=== PATIENT | male | born 1950 | race Caucasian/White ===

== ENCOUNTER 2016-10-29 19:54 | Emergency (ER) | payer OTHER ==
[~2016-10-29 19:54] MED LIST: METO1TAB69 PO; ZINC PO
[2016-10-29 19:58] VITALS: Ht 172.7 cm
--- NOTE | 2016-10-29 20:58 | DIAGNOSTIC IMAGING REPORT ---
L-SPINE MIN 4 VIEWS ROUTINE CLINICAL HISTORY: Fall. COMPARISON: Lumbar spine MRI March 23, 2014. FINDINGS: Mild levoscoliosis of the lumbar spine is again noted. No acute fracture is identified. Grade I anterolisthesis of L4 and L5 is unchanged. Moderate multilevel degenerative changes are present. IMPRESSION: 1. No acute lumbar spine fracture or subluxation identified. 2. Moderate multilevel degenerative changes. Electronically signed by: Nehemiah Zavala M.D. 10/29/2016 8:56 PM Dictated Date/Time: 10/29/2016 8:55 PM
--- NOTE | 2016-10-29 20:59 | DIAGNOSTIC IMAGING REPORT ---
PELVIS 1 OR 2 VIEW ROUTINE CLINICAL HISTORY: Fall. COMPARISON STUDY: CT of the abdomen and pelvis June 03, 2014. FINDINGS: The sacroiliac joints and symphysis pubis are intact. No acute fracture is identified within the pelvis or hips. There is mild arthritis of both hips. IMPRESSION: No acute fracture within the pelvis or hips. Electronically signed by: Nehemiah Zavala M.D. 10/29/2016 8:57 PM Dictated Date/Time: 10/29/2016 8:57 PM
--- NOTE | 2016-10-29 21:01 | DIAGNOSTIC IMAGING REPORT ---
RIGHT SHOULDER MIN 2 VIEWS ROUTINE CLINICAL HISTORY: Right shoulder pain following fall. COMPARISON: None FINDINGS: This exam was compromised due to difficulty with positioning. No acute fracture is identified. There is severe AC joint arthritis and mild glenohumeral joint arthritis. IMPRESSION: 1. No acute fracture or dislocation of the right shoulder. 2. Study mildly compromised by difficultly positioning. 3. Severe right AC joint arthrosis. Electronically signed by: Nehemiah Zavala M.D. 10/29/2016 8:59 PM Dictated Date/Time: 10/29/2016 8:58 PM
--- NOTE | 2016-10-29 21:23 | DIAGNOSTIC IMAGING REPORT ---
CT OF THE HEAD WITHOUT CONTRAST CLINICAL HISTORY: Fall. COMPARISON STUDY: Head CT March 22, 2014. TECHNIQUE: Helical axial images of the head were obtained without IV contrast. Automated exposure control was utilized for the study. FINDINGS: This exam is mildly compromised by motion artifact. No acute intracranial hemorrhage, midline shift or mass effect is present. Ventricular system is stable. Basilar cisterns are patent. There are no extra axial collections. Hypodensity within the white matter suggests small vessel disease. There is a left frontal scalp contusion. No calvarial fracture is identified. Deformity of the right nasal bone is age-indeterminate but probably old. IMPRESSION: 1. No acute intracranial findings. 2. Left frontal scalp contusion. No calvarial fracture. 3. Age indeterminate, but likely old, deformity of the right nasal bone. Electronically signed by: Nehemiah Zavala M.D. 10/29/2016 9:22 PM Dictated Date/Time: 10/29/2016 9:17 PM
--- NOTE | 2016-10-29 21:29 | DIAGNOSTIC IMAGING REPORT ---
MAXILLOFACIAL CT WITHOUT CONTRAST CLINICAL HISTORY: Left-sided facial pain following fall. COMPARISON STUDY: Head CT March 22, 2014. TECHNIQUE: A maxillofacial CT was performed without IV contrast. Coronal and sagittal reformats were viewed. FINDINGS: A left frontal scalp contusion is present. There is no calvarial fracture. There is also a left facial contusion. No acute facial fracture is identified. Nasal bone deformities are likely old. There is mild mucosal thickening of the sinuses. Orbits are unremarkable. There is no retrobulbar hematoma. Globes are intact. The cervical spine CT will be reported separately. IMPRESSION: 1. Bilateral nasal bone deformities. Although age indeterminate, these are probably old and similar in appearance to head CT of October 01, 2012. 2. Left facial contusions. No definite acute facial fracture. Electronically signed by: Nehemiah Zavala M.D. 10/29/2016 9:28 PM Dictated Date/Time: 10/29/2016 9:22 PM
--- NOTE | 2016-10-29 21:32 | DIAGNOSTIC IMAGING REPORT ---
CT OF THE CERVICAL SPINE WITHOUT CONTRAST CLINICAL HISTORY: Fall. COMPARISON STUDY: No previous studies for comparison. TECHNIQUE: Helical axial images of the cervical spine were obtained without IV contrast. Sagittal and coronal reconstructions were viewed. FINDINGS: The craniocervical junction is intact. There is no acute cervical spine fracture. There is no prevertebral edema. Moderate multilevel degenerative disc disease is present as well as moderate multilevel facet arthrosis. IMPRESSION: No acute cervical spine fracture or subluxation. Electronically signed by: Nehemiah Zavala M.D. 10/29/2016 9:31 PM Dictated Date/Time: 10/29/2016 9:28 PM
[2016-10-29 22:09] VITALS: BP 128/76; PULSE 71; O2SAT 99
--- NOTE | 2016-10-29 23:11 | EMERGENCY ROOM VISIT NOTE ---
History Report prepared by Terry: Stephania Huber Under the Supervision of: Dr. Devyn Bethea M.D. First contact with patient: 20:04 Chief Complaint: FALL Stated Complaint: FELL,BUMP ON FACE History of Present Illness The patient is a 66 year old male who presents to the Emergency Room with complaints of a fall that occurred yesterday at a dusk. 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 He states he tripped over an object in an aisle in between equipment and fell over. He denies losing consciousness. He thinks he reinjured his right shoulder and sustained bruising to his face, rating his discomfort as a 3/10. The patient states he experienced neck pain last night, but it has resolved. He denies any fevers, headache or vomiting. He does not take daily blood thinners. He denies any numbness or weakness in either side of his body. He does have a history of back pain and thinks he exacerbated it during the fall. He denies any abdominal pain or hip pain. He has chronic difficulty ambulating because of his history of back pain and he states his ambulation is unchanged. He believes his last Tetanus shot was within the past 10 years. Source of History: patient Onset: last night Position: other (global) Quality: other (mechanical fall) Timing: resolved Associated Symptoms: + back pain, + neck pain (resolved), No LOC, No fevers , No headache, No numbness (numbness in either side of his body), No vomiting, No weakness (weakness in either side of body) Review of Systems See HPI for pertinent positives & negatives. A total of 10 systems reviewed and were otherwise negative. Past Medical & Surgical Medical Problems: (1) Nephrolithiasis Social History Smoking Status: Former Smoker Alcohol Use: none Drug Use: none Marital Status: single Housing Status: lives alone Occupation Status: retired Current/Historical Medications Scheduled Amlodipine (Norvasc), 2.5 MG PO QAM Metoprolol Succinate (Metoprolol Succinate ER), 100 MG PO QAM Pantoprazole (Protonix), 40 MG PO QAM Sertraline (Zoloft), 50 MG PO HS Tamsulosin Hcl (Flomax), 0.4 MG PO HS Allergies Coded Allergies: No Known Allergies (Verified , 07/07/16) Physical Exam Vital Signs Date Time Temp Pulse Resp B/P Pulse Ox O2 Delivery O2 Flow Rate FiO2 10/29/16 22:09 71 18 128/76 99 10/29/16 19:58 73 18 134/79 100 Room Air Physical Exam Constitutional: Vital signs reviewed. Eyes: Pupils are equal round reactive to light. Conjunctiva are noninjected. No hyphema, no subconjunctival hemorrhage. ENT: Left periorbital swelling with some mild tenderness, abrasions to left forehead. Pharynx is clear without erythema or exudate. Mucous membranes are moist. Neck supple without meningeal signs. Respiratory: Clear to auscultation bilaterally. Breath sounds are equal bilaterally. Cardiovascular: Regular rate and rhythm. No rubs or gallops. GI: Soft, nondistended and nontender. Bowel sounds are present. Musculoskeletal: No midline tenderness to cervical, lumbosacral or thoracic spine. Mild anterior right shoulder tenderness. No hip tenderness. Integumentary: No cyanosis. Neurologic: The patient is awake and alert. Cranial nerves II-XII are intact. Motor is 5 out of 5 all extremities. Sensation is intact to light touch all extremities. Normal speech. No pronator drift. Psychiatric: Normal affect. Medical Decision & Procedures ER Provider Diagnostic Interpretation: These CT scans were reviewed and interpreted by the radiologist and reviewed by myself. CT OF THE CERVICAL SPINE WITHOUT CONTRAST CLINICAL HISTORY: Fall. COMPARISON STUDY: No previous studies for comparison. TECHNIQUE: Helical axial images of the cervical spine were obtained without IV contrast. Sagittal and coronal reconstructions were viewed. FINDINGS: The craniocervical junction is intact. There is no acute cervical spine fracture. There is no prevertebral edema. Moderate multilevel degenerative disc disease is present as well as moderate multilevel facet arthrosis. IMPRESSION: No acute cervical spine fracture or subluxation. Electronically signed by: Nehemiah Zavala M.D. 10/29/2016 9:[address] OF THE HEAD WITHOUT CONTRAST CLINICAL HISTORY: Fall. COMPARISON STUDY: Head CT March 22, 2014. TECHNIQUE: Helical axial images of the head were obtained without IV contrast. Automated exposure control was utilized for the study. FINDINGS: This exam is mildly compromised by motion artifact. No acute intracranial hemorrhage, midline shift or mass effect is present. Ventricular system is stable. Basilar cisterns are patent. There are no extra axial collections. Hypodensity within the white matter suggests small vessel disease. There is a left frontal scalp contusion. No calvarial fracture is identified. Deformity of the right nasal bone is age-indeterminate but probably old. IMPRESSION: 1. No acute intracranial findings. 2. Left frontal scalp contusion. No calvarial fracture. 3. Age indeterminate, but likely old, deformity of the right nasal bone. Electronically signed by: Nehemiah Zavala M.D. 10/29/2016 9:[address] WITHOUT CONTRAST CLINICAL HISTORY: Left-sided facial pain following fall. COMPARISON STUDY: Head CT March 22, 2014. TECHNIQUE: A maxillofacial CT was performed without IV contrast. Coronal and sagittal reformats were viewed. FINDINGS: A left frontal scalp contusion is present. There is no calvarial fracture. There is also a left facial contusion. No acute facial fracture is identified. Nasal bone deformities are likely old. There is mild mucosal thickening of the sinuses. Orbits are unremarkable. There is no retrobulbar hematoma. Globes are intact. The cervical spine CT will be reported separately. IMPRESSION: 1. Bilateral nasal bone deformities. Although age indeterminate, these are probably old and similar in appearance to head CT of October 01, 2012. 2. Left facial contusions. No definite acute facial fracture. Electronically signed by: Nehemiah Zavala M.D. 10/29/2016 9:28 PM These X-Rays were reviewed and interpreted by myself and the radiologist. RIGHT SHOULDER MIN 2 VIEWS ROUTINE CLINICAL HISTORY: Right shoulder pain following fall. COMPARISON: None FINDINGS: This exam was compromised due to difficulty with positioning. No acute fracture is identified. There is severe AC joint arthritis and mild glenohumeral joint arthritis. IMPRESSION: 1. No acute fracture or dislocation of the right shoulder. 2. Study mildly compromised by difficultly positioning. 3. Severe right AC joint arthrosis. Electronically signed by: Nehemiah Zavala M.D. 10/29/2016 8:59 PM L-SPINE MIN 4 VIEWS ROUTINE CLINICAL HISTORY: Fall. COMPARISON: Lumbar spine MRI March 23, 2014. FINDINGS: Mild levoscoliosis of the lumbar spine is again noted. No acute fracture is identified. Grade I anterolisthesis of L4 and L5 is unchanged. Moderate multilevel degenerative changes are present. IMPRESSION: 1. No acute lumbar spine fracture or subluxation identified. 2. Moderate multilevel degenerative changes. Electronically signed by: Nehemiah Zavala M.D. 10/29/2016 8:56 PM PELVIS 1 OR 2 VIEW ROUTINE CLINICAL HISTORY: Fall. COMPARISON STUDY: CT of the abdomen and pelvis June 03, 2014. FINDINGS: The sacroiliac joints and symphysis pubis are intact. No acute fracture is identified within the pelvis or hips. There is mild arthritis of both hips. IMPRESSION: No acute fracture within the pelvis or hips. Electronically signed by: Nehemiah Zavala M.D. 10/29/2016 8:57 PM ED Course 2005: The patient was evaluated in room C10. A complete history and physical exam was performed. 2139: I reevaluated the patient. I discussed test results with the patient. His family member states he has broken his nose in the past. I discussed his discharge instructions and he verbalized complete understanding and agreement. Medical Decision This is a 66-year-old male who presents after mechanical fall with injuries. Differential diagnosis includes contusion, concussion, intracranial hemorrhage, skull fracture, facial fracture, strain. I did perform a limited focused review of portions of the patient's old chart on the electronic medical record. The patient has had no recent pertinent visits to this hospital. I did evaluate the patient as noted above. He is presenting with injuries after a mechanical fall yesterday. He is neurologically intact. I did order and personally review the patient's x-ray as described above. He has no evidence of fracture dislocation. He does have significant arthritis to his right shoulder as well as degenerative changes to his lumbar spine. I did order a CT of the head, facial bones and cervical spine. I did review the images myself as well as the radiology report as described above. There is no evidence of acute intracranial hemorrhage. He has old nasal fractures but no acute fractures to his face. Cervical spine is unremarkable. 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 He does state that his nasal fractures are old. He was discharged with head injury precautions and advised to follow with his doctor. Impression Primary Impression: Acute head injury Additional Impressions: Right shoulder injury Low back pain Fall Scribe Attestation The scribe's documentation has been prepared under my direct and personally reviewed by me in its entirety. I confirm that the note above accurately reflects all work, treatment, procedures, and medical decision making performed by me. Departure Information Dispostion Home / Self-Care Referrals Pro,Xavier Vera M.D. (PCP) Patient Instructions ED Head Injury Closed, My [facility] Additional Instructions You have been examined and treated today on an emergency basis only. This is not a substitute for, or an effort to provide, complete comprehensive medical care. It is impossible to recognize and treat all injuries or illnesses in a single emergency department visit. It is therefore important that you follow up closely with your physician. Call as soon as possible for an appointment. Return for worsening symptoms or if you develop fever, vomiting, chest pain, shortness breath, abdominal pain or any other concerning symptoms. Problem Qualifiers Primary Impression: Acute head injury Encounter type: initial encounter Qualified Codes: S09.90XA - Unspecified injury of head, initial encounter Additional Impressions: Right shoulder injury Encounter type: initial encounter Qualified Codes: S49.91XA - Unspecified injury of right shoulder and upper arm, initial encounter Fall Encounter type: initial encounter Qualified Codes: W19.XXXA - Unspecified fall, initial encounter
[2017-01-15] MEDS ORDERED: AMLO-110 PO (13:11)
[2017-01-15] MEDS ORDERED: SERT50TA PO (13:11)
[2017-01-15] MEDS ORDERED: PANT40TA PO (13:11)
[2017-01-15] MEDS ORDERED: TAMS0.4C38 PO (13:11)
== END 2016-10-29 22:10 | disposition home or self-care (01) ==
LOC: C.EDB 19:54 → C.EDC 22:10
DX: S09.90XA Unspecified injury of head, initial encounter (principal); S49.91XA Unspecified injury of right shoulder and upper arm, initial encounter; M54.5 Low back pain; Z79.899 Other long term (current) drug therapy; Z87.891 Personal history of nicotine dependence; W18.09XA Striking against other object with subsequent fall, initial encounter; Y92.018 Other place in single-family (private) house as the place of occurrence of the external cause; Y99.8 Other external cause status

== ENCOUNTER 2017-01-15 18:25 | Emergency (ER) | payer OTHER ==
[~2017-01-15 18:25] MED LIST changes: +AMLO-110 PO; -METO1TAB69 PO; +PANT40TA PO; +SERT50TA PO; +TAMS0.4C38 PO; -ZINC PO
[2017-01-15 18:30] VITALS: TEMP 36.5; Ht 170.2 cm
[2017-01-15] MEDS ORDERED: AMPICILLIN/SULBACTAM SOD INJ 3,000 MG in SODIUM CHLORIDE 0.9% 100ML 100 ML IV ONE (18:45)
--- NOTE | 2017-01-15 19:02 | EMERGENCY ROOM VISIT NOTE ---
History Report prepared by Terry: Brianna Ball Under the Supervision of: Dr. Luis Manuel Schmidt M.D. First contact with patient: 18:35 Chief Complaint: FOOT PAIN Stated Complaint: VERY SORE L FOOT FROM FALL, POSS INFECTION CLOT History of Present Illness The patient is a 66 year old male who presents to the Emergency Room with complaints of worsening left lower leg and foot pain that started a few weeks ago, per the patient's friends. The patient's friends state that the patient has been limping around for the past few weeks and they finally convinced him to get his foot evaluated today. The patient was evaluated at [facility] then sent to the ED for further evaluation. The patient states that he jumped off a pile of debris last June that was 3-4 feet high because he was going to fall off of it. He states that the debris consisted of nails and glass and when he jumped off he landed on his left foot. The patient states that he had some pain in his left foot after that incident, but it resolved on its own after about one week. He did not get evaluated after that incident. He states that he has fallen more recently since June and that those falls may have caused his foot to hurt again. The patient is also experiencing left foot erythema and warmth. He states that he experienced chills once over the last two weeks. The patient denies any history of diabetes. He adds that he has a history of cellulitis, which was treated with IV antibiotics in the past. Source of History: patient, friend Onset: a few weeks ago Position: foot (left) Quality: other (foot pain) Timing: worsening Associated Symptoms: + chills Note: left lower leg erythema and warmth Review of Systems See HPI for pertinent positives & negatives. A total of 10 systems reviewed and were otherwise negative. Past Medical & Surgical Medical Problems: (1) Nephrolithiasis Family History Diabetes mellitus Hypertension Hypertension Kidney disease Kidney stones Lung disease Social History Smoking Status: Never Smoker Alcohol Use: none Drug Use: none Marital Status: single Housing Status: lives alone Occupation Status: retired Current/Historical Medications Scheduled Amlodipine (Norvasc), 2.5 MG PO QAM Amoxicillin & Pot Clavulanate (Augmentin 875-125 mg), 875 MG PO BID Metoprolol Succinate (Metoprolol Succinate ER), 100 MG PO QAM Pantoprazole (Protonix), 40 MG PO QAM Sertraline (Zoloft), 50 MG PO HS Tamsulosin Hcl (Flomax), 0.4 MG PO HS Allergies Coded Allergies: No Known Allergies (Verified , 01/15/17) Physical Exam Vital Signs Date Time Temp Pulse Resp B/P Pulse Ox O2 Delivery O2 Flow Rate FiO2 01/15/17 21:45 58 18 133/80 99 Room Air 01/15/17 19:59 59 18 136/83 100 Room Air 01/15/17 18:30 36.5 70 18 127/80 100 Room Air Physical Exam GENERAL: Patient is in no acute distress. HEENT: No acute trauma, normocephalic atraumatic, mucous membranes moist, no nasal congestion, no scleral icterus. NECK: No stridor, no adenopathy, no meningismus, trachea is midline. LUNGS: Clear to auscultation bilaterally, no wheeze, no rhonchi, breath sounds equal. HEART: Without murmurs gallops or rubs, regular rate and rhythm. ABDOMEN: Soft, nontender, bowel sounds positive, no hernias, no peritonitis. EXTREMITIES: Left more so than right pedal edema, left leg has an open healing wound about 3 mm in size to the anterior aspect of the distal leg with surrounding erythema and warmth, no drainage, warm feet and toes bilaterally. NEUROLOGIC: Oriented x 3, no acute motor or sensory deficits, no focal weakness. SKIN: No rash, no jaundice, no diaphoresis. Medical Decision & Procedures ER Provider Diagnostic Interpretation: X ray results and stated below per my interpretation and radiologist interpretation. Other radiology results and stated below per my review and radiologist interpretation: LEFT TIBIA/FIBULA 2 VIEWS ROUTINE, LEFT FOOT MIN 3 VIEWS ROUTINE FINDINGS: No fracture or dislocation. Diffuse soft tissue swelling within the left lower leg and dorsum of the foot. Moderate osteoarthritis at the first MTP joint and interphalangeal joint of the first toe. The Lisfranc joint is intact. No radiopaque foreign bodies. IMPRESSION: Soft tissue swelling. No fracture or dislocation within the left lower leg or left foot. Electronically signed by: Jose Lamar M.D. 01/15/2017 7:48 PM Dictated Date/Time: 01/15/2017 7:44 PM LEFT LOWER EXTREMITY VENOUS DOPPLER HISTORY: Left leg swelling, pain COMPARISON STUDY: None. FINDINGS: There is normal compressibility, flow, and augmentation within the left lower extremity deep venous system. Diffuse subcutaneous edema IMPRESSION: No DVT within the left lower extremity. Electronically signed by: Jose Lamar M.D. 01/15/2017 9:11 PM Dictated Date/Time: 01/15/2017 9:11 PM Laboratory Results 01/15/17 19:00 Red Blood Count 3.77, Mean Corpuscular Volume 88.1, Mean Corpuscular Hemoglobin 29.4, Mean Corpuscular Hemoglobin Concent 33.4, Mean Platelet Volume 8.7, Neutrophils (%) (Auto) 59.6, Lymphocytes (%) (Auto) 28.2, Monocytes (%) (Auto) 8.6, Eosinophils (%) (Auto) 2.8, Basophils (%) (Auto) 0.8, Neutrophils # (Auto) 2.16, Lymphocytes # (Auto) 1.02, Monocytes # (Auto) 0.31, Eosinophils # (Auto) 0.10, Basophils # (Auto) 0.03 01/15/17 19:00 Test 01/15/17 19:00 White Blood Count 3.62 K/uL (4.8-10.8) Red Blood Count 3.77 M/uL (4.7-6.1) Hemoglobin 11.1 g/dL (14.0-18.0) Hematocrit 33.2 % (42-52) Mean Corpuscular Volume 88.1 fL (80-100) Mean Corpuscular Hemoglobin 29.4 pg (25-34) Mean Corpuscular Hemoglobin Concent 33.4 g/dl (32-36) Platelet Count 162 K/uL (130-400) Mean Platelet Volume 8.7 fL (7.4-10.4) Neutrophils (%) (Auto) 59.6 % Lymphocytes (%) (Auto) 28.2 % Monocytes (%) (Auto) 8.6 % Eosinophils (%) (Auto) 2.8 % Basophils (%) (Auto) 0.8 % Neutrophils # (Auto) 2.16 K/uL (1.4-6.5) Lymphocytes # (Auto) 1.02 K/uL (1.2-3.4) Monocytes # (Auto) 0.31 K/uL (0.11-0.59) Eosinophils # (Auto) 0.10 K/uL (0-0.5) Basophils # (Auto) 0.03 K/uL (0-0.2) RDW Standard Deviation 47.6 fL (36.4-46.3) RDW Coefficient of Variation 14.7 % (11.5-14.5) Immature Granulocyte % (Auto) 0.0 % Immature Granulocyte # (Auto) 0.00 K/uL (0.00-0.02) Prothrombin Time 11.4 SECONDS (9.0-12.0) Prothromb Time International Ratio 1.1 (0.9-1.1) Activated Partial Thromboplast Time 27.1 SECONDS (21.0-31.0) Partial Thromboplastin Ratio 1.0 Anion Gap 8.0 mmol/L (3-11) Estimated GFR () 65.0 Estimated GFR (Non- 56.1 BUN/Creatinine Ratio 19.0 (10-20) Calcium Level 9.1 mg/dl (8.5-10.1) Laboratory results reviewed by me. Medications Administered Medications (Trade) Dose Ordered Sig/Vicki Route Start Time Stop Time Status Last Admin Dose Admin Ampicillin Sodium/ Sulbactam Sodium/ Sodium Chloride (Unasyn Inj/Nss 100ml) 108 ml @ 200 mls/hr ONE ONCE IV 01/15/17 18:45 01/15/17 19:17 DC 01/15/17 19:19 200 MLS/HR ED Course 183: The patient was evaluated in room A11. A complete history and physical exam was performed. 1844: Ordered Ampicillin Sodium/Sulbactam Sodium 3000 mg/Sodium Chloride 108 ml @ 200 mls/hr IV 2124: Reevaluated the patient. Discussed results and discharge instructions: he verbalized understanding and agreement. The patient is ready for discharge. Medical Decision Differential diagnoses considered include cellulitis, DVT, leg ankle or foot fracture, anemia, electrolyte imbalance, trauma. There is no leukocytosis or concerning anemia. No significant electrolyte abnormality or kidney failure. There is no coagulopathy. Left tib-fib and left foot films show no fractures or bony dislocations. Left leg ultrasound shows no evidence for DVT. On exam, the patient did appear to have a left lower extremity cellulitis. The patient was given IV Unasyn. He was reassured by his testing. He is being discharged on Augmentin twice a day for 10 days. Leg elevation was advised. He will see his doctor this week. If worsening, he will return for reassessment. Impression Primary Impression: Left leg cellulitis Additional Impression: Left leg swelling Scribe Attestation The scribe's documentation has been prepared under my direction and personally reviewed by me in its entirety. I confirm that the note above accurately reflects all work, treatment, procedures, and medical decision making performed by me. Departure Information Dispostion Home / Self-Care Prescriptions Amoxicillin & Pot Clavulanate (Augmentin 875-125 mg) 1 Tab Tab 875 MG PO BID for 10 Days, #20 TAB Prov: Luis Manuel Schmidt M.D. 01/15/17 Referrals Pro,Xavier Vera M.D. (PCP) Forms HOME CARE DOCUMENTATION FORM, IMPORTANT VISIT INFORMATION Patient Instructions My [facility] Additional Instructions augmentin 2x per day for 10 days see your doctor this week for a recheck keep the leg elevated return if worsening as we discussed no clot today by ultrasound may use tylenol for pain Problem Qualifiers
[2017-01-15 19:13] LABS: BASO % 0.8 %; BASO ABS # 0.03 K/uL (0-0.2); COMPLETE YES; EOS % 2.8 %; HEMATOCRIT 33.2 % (42-52); LYMPH % 28.2 %; LYMPH ABS # 1.02 K/uL (1.2-3.4); MEAN CELL VOLUME 88.1 fL (80-100); MEAN CORPUSCULAR HEMOGLOBIN 29.4 pg (25-34); MEAN CORPUSCULAR HGB CONC 33.4 g/dl (32-36); MEAN PLATELET VOLUME 8.7 fL (7.4-10.4); MONO % 8.6 %; NEUT % 59.6 %; PLATELET COUNT 162 K/uL (130-400); RED BLOOD COUNT 3.77 M/uL (4.7-6.1); WHITE BLOOD COUNT 3.62 K/uL (4.8-10.8)
[2017-01-15 19:23] LABS: INR 1.1 (0.9-1.1); PROTHROMBIN TIME (PATIENT) 11.4 SECONDS (9.0-12.0)
[2017-01-15 19:38] LABS: BLOOD UREA NITROGEN 25 mg/dl (7-18); CALCIUM 9.1 mg/dl (8.5-10.1); CARBON DIOXIDE 30 mmol/L (21-32); CHLORIDE 105 mmol/L (98-107); GLUCOSE 85 mg/dl (70-99); POTASSIUM 3.9 mmol/L (3.5-5.1); SODIUM 143 mmol/L (136-145)
--- NOTE | 2017-01-15 19:49 | DIAGNOSTIC IMAGING REPORT ---
LEFT TIBIA/FIBULA 2 VIEWS ROUTINE, LEFT FOOT MIN 3 VIEWS ROUTINE CLINICAL HISTORY: left leg, foot pain. Fall. COMPARISON STUDY: None. FINDINGS: No fracture or dislocation. Diffuse soft tissue swelling within the left lower leg and dorsum of the foot. Moderate osteoarthritis at the first MTP joint and interphalangeal joint of the first toe. The Lisfranc joint is intact. No radiopaque foreign bodies. IMPRESSION: Soft tissue swelling. No fracture or dislocation within the left lower leg or left foot. Electronically signed by: Jose Lamar M.D. 01/15/2017 7:48 PM Dictated Date/Time: 01/15/2017 7:44 PM
--- NOTE | 2017-01-15 21:12 | DIAGNOSTIC IMAGING REPORT ---
LEFT LOWER EXTREMITY VENOUS DOPPLER HISTORY: Left leg swelling, pain COMPARISON STUDY: None. FINDINGS: There is normal compressibility, flow, and augmentation within the left lower extremity deep venous system. Diffuse subcutaneous edema IMPRESSION: No DVT within the left lower extremity. Electronically signed by: Jose Lamar M.D. 01/15/2017 9:11 PM Dictated Date/Time: 01/15/2017 9:11 PM
[2017-01-15] MEDS ORDERED: AMOX875T PO (21:31)
[2017-01-15 21:45] VITALS: BP 133/80; PULSE 58; O2SAT 99
[2017-01-15] MEDS ORDERED: TPRSR/100 PO (22:11)
[2017-07-25] MEDS ORDERED: IBUP-103 PO (13:18)
== END 2017-01-15 21:46 | disposition home or self-care (01) ==
LOC: C.EDB 18:27 → C.EDA 21:46
DX: L03.116 Cellulitis of left lower limb (principal); R22.42 Localized swelling, mass and lump, left lower limb; Z87.442 Personal history of urinary calculi; Z79.899 Other long term (current) drug therapy; Z83.3 Family history of diabetes mellitus; Z82.49 Family history of ischemic heart disease and other diseases of the circulatory system; Z84.1 Family history of disorders of kidney and ureter

== ENCOUNTER → 2017-05-13 | Outpatient (CLI) | payer OTHER ==
[~2017-05-13] MED LIST changes: +TPRSR/100 PO
--- NOTE | 2017-05-13 11:40 | DIAGNOSTIC IMAGING REPORT ---
RIGHT SHOULDER 3 VIEWS HISTORY: RIGHT SHOULDER PAIN Right COMPARISON: Right shoulder 10/29/2016. FINDINGS: There is no fracture or dislocation. Soft tissues are unremarkable. The right clavicle is intact. Severe AC joint arthrosis, unchanged. Mild osteoarthritis at the glenohumeral joint is also stable. Stable 5 mm round density at the superior aspect of the glenohumeral joint. This could represent a small intra-articular loose body. IMPRESSION: 1. No fracture or dislocation within the right shoulder. 2. No significant change in the severe AC joint arthrosis. 3. Possible 5 mm intra-articular loose body. Electronically signed by: Jose Lamar M.D. 05/13/2017 11:39 AM Dictated Date/Time: 05/13/2017 11:37 AM
[2017-05-13 13:19] LABS: HEMATOCRIT 34.2 % (42-52); MEAN CELL VOLUME 89.1 fL (80-100); MEAN CORPUSCULAR HEMOGLOBIN 30.2 pg (25-34); MEAN CORPUSCULAR HGB CONC 33.9 g/dl (32-36); MEAN PLATELET VOLUME 9.4 fL (7.4-10.4); PLATELET COUNT 167 K/uL (130-400); RED BLOOD COUNT 3.84 M/uL (4.7-6.1); WHITE BLOOD COUNT 4.64 K/uL (4.8-10.8)
[2017-05-13 13:27] LABS: ALT/SGPT 43 U/L (12-78); AST/SGOT 36 U/L (15-37); BLOOD UREA NITROGEN 13 mg/dl (7-18); BUN/CREATININE RATIO 13.1 (10-20); CARBON DIOXIDE 32 mmol/L (21-32); CHLORIDE 103 mmol/L (98-107); GLUCOSE 117 mg/dl (70-99); POTASSIUM 4.6 mmol/L (3.5-5.1); SODIUM 138 mmol/L (136-145)
[2017-05-13 13:37] LABS: ALB/GLOB RATIO 0.8 (0.9-2)
[2017-05-13 13:38] LABS: ALKALINE PHOSPHATASE 122 U/L (45-117); CHOLESTEROL 95 mg/dl (0-200); CHOLESTEROL/HDL RATIO 3.1; HDL CHOLESTEROL 31 mg/dl; LDL CHOLESTEROL CALCULATED 44 mg/dl; PROSTATE SPECIFIC ANTIGEN 0.483 ng/ml (0.000-4.000); TRIGLYCERIDES 101 mg/dl (0-150); VERY LOW DENSITY LIPOPROT CALC 20 mg/dl
--- NOTE | 2017-05-24 11:45 | CODING QUERY MEDICAL NECESSITY ---
CQSUPPORTING DIAGNOSIS NEEDED A supporting diagnosis is required for the test/procedure performed on this patient in order for us to be reimbursed by the patient's insurance. Please provide a supporting diagnosis for the following test/procedure listed below next to the test name along with your signature. *If there is no additional diagnosis for this patient that would support the following test/procedure please document that below next to the test/procedure. Test(s)/Procedure(s) that require a supporting diagnosis: DOS 05/13/17 PROSTATE SPECIFIC TEST YOU RETURNED QUERY WITH SIGNATURE BUT NO DIAGNOSIS PLEASE ADD DIAGNOSIS AND SIGNATURE THANK YOU Provider Signature: Date: Thank you Suyapa Elliott [facility] Information Management Once completed, please kindly fax back to [phone] For questions please call [phone]
== END | disposition home or self-care (01) ==
LOC: C.RAD1850 10:55
PROVIDERS: ATTEND Internal Medicine
DX: K74.0 Hepatic fibrosis (principal); R63.4 Abnormal weight loss; I10 Essential (primary) hypertension; M25.511 Pain in right shoulder

== ENCOUNTER → 2017-05-18 | Outpatient (CLI) | payer OTHER ==
--- NOTE | 2017-05-18 12:07 | DIAGNOSTIC IMAGING REPORT ---
ABDOMEN ULTRASOUND FOR HERNIA CLINICAL HISTORY: LEFT INGUINAL SWELLING COMPARISON STUDY: Abdomen and pelvis CT 06/03/2014. FINDINGS: There is a left inguinal hernia which contains a segment of bowel, fluid, and fat. This is reducible. No masses identified within the left inguinal region. No lymphadenopathy. IMPRESSION: A bowel and fluid containing reducible left inguinal hernia. Electronically signed by: Jose Lamar M.D. 05/18/2017 12:07 PM Dictated Date/Time: 05/18/2017 12:04 PM
--- NOTE | 2017-05-18 12:42 | DIAGNOSTIC IMAGING REPORT ---
ABDOMEN COMPLETE (US) CLINICAL HISTORY: Hepatic fibrosis. COMPARISON STUDY: CT of the abdomen and pelvis June 03, 2014 and right upper quadrant ultrasound March 21, 2014. FINDINGS: Coarsening of hepatic echotexture and nodularity of the liver surface is indicative of cirrhosis. No hepatic lesions are identified by sonography. No gallstones are identified. Mild gallbladder wall thickening is a nonspecific finding. The pancreatic body is normal. The head and tail are partially obscured. There is no biliary ductal dilatation. The spleen is mildly enlarged. This is likely increased since exam of June 03, 2014. The right kidney measures 9.4 cm and left measures 10.7 cm. There is no hydronephrosis. There is a 1 cm right renal cyst. Caliber of the abdominal aorta is normal. No ascites is identified. IMPRESSION: 1. Cirrhosis. No hepatic lesions identified by sonography. 2. Mild splenomegaly which has developed since exam June 03, 2014 and likely reflects sequela of portal hypertension. 3. Mild gallbladder wall thickening, a nonspecific finding. 4. No hydronephrosis. Electronically signed by: Nehemiah Zavala M.D. 05/18/2017 12:40 PM Dictated Date/Time: 05/18/2017 12:36 PM
== END | disposition home or self-care (01) ==
LOC: C.ULTRBC 09:33
PROVIDERS: ATTEND Internal Medicine
DX: R19.09 Other intra-abdominal and pelvic swelling, mass and lump (principal); K74.0 Hepatic fibrosis; K40.90 Unilateral inguinal hernia, without obstruction or gangrene, not specified as recurrent; K74.60 Unspecified cirrhosis of liver

== ENCOUNTER → 2017-06-29 | Outpatient (CLI) | payer OTHER ==
[2017-06-29 13:12] LABS: BASO % 0.5 %; BASO ABS # 0.03 K/uL (0-0.2); COMPLETE YES; EOS % 1.9 %; HEMATOCRIT 33.7 % (42-52); IG% 0.2 %; LYMPH ABS # 0.98 K/uL (1.2-3.4); MEAN CELL VOLUME 87.5 fL (80-100); MEAN CORPUSCULAR HEMOGLOBIN 29.4 pg (25-34); MEAN CORPUSCULAR HGB CONC 33.5 g/dl (32-36); MEAN PLATELET VOLUME 9.9 fL (7.4-10.4); MONO % 9.9 %; NEUT % 70.5 %; PLATELET COUNT 190 K/uL (130-400); RED BLOOD COUNT 3.85 M/uL (4.7-6.1); WHITE BLOOD COUNT 5.78 K/uL (4.8-10.8)
[2017-06-29 13:49] LABS: ALT/SGPT 29 U/L (12-78); AST/SGOT 30 U/L (15-37); BLOOD UREA NITROGEN 40 mg/dl (7-18); BUN/CREATININE RATIO 48.2 (10-20); CALCIUM 8.9 mg/dl (8.5-10.1); CARBON DIOXIDE 27 mmol/L (21-32); CHLORIDE 101 mmol/L (98-107); CREATININE 0.83 mg/dl (0.60-1.40); GLUCOSE 101 mg/dl (70-99); POTASSIUM 4.4 mmol/L (3.5-5.1); SODIUM 135 mmol/L (136-145)
[2017-06-29 13:58] LABS: ALB/GLOB RATIO 0.8 (0.9-2); ALKALINE PHOSPHATASE 103 U/L (45-117); TOTAL IRON BINDING CAPACITY 346 mcg/dl (250-450)
== END | disposition home or self-care (01) ==
LOC: C.LABBC 11:33
PROVIDERS: ATTEND Physician Assistant
DX: R63.4 Abnormal weight loss (principal)

== ENCOUNTER → 2017-07-25 | Outpatient (CLI) | payer OTHER ==
[~2017-07-25] MED LIST changes: +DOXY100C76 PO; +IBUP-103 PO
--- NOTE | 2017-07-25 15:37 | DIAGNOSTIC IMAGING REPORT ---
THORACIC SPINE 3 VIEWS ROUTINE HISTORY: 67 years-old Male MODERATE BACK PAIN,LT RT SHOULDER PAIN acute back pain status post fall COMPARISON: Lumbar spine radiographs of same day TECHNIQUE: 3 views of the thoracic spine FINDINGS: 12 thoracic type vertebral segments are present. The right 12th rib is hypoplastic. Mild multilevel endplate spurring and intervertebral disc space narrowing is noted without acute fracture or subluxation. No compression deformity identified. Dense calcifications of the mitral annulus are noted along with cardiomegaly. There is atherosclerosis of the aorta. IMPRESSION: No acute fracture or subluxation. The above report was generated using voice recognition software. It may contain grammatical, syntax or spelling errors. Electronically signed by: Davis Dodd M.D. 07/25/2017 3:36 PM Dictated Date/Time: 07/25/2017 3:33 PM
--- NOTE | 2017-07-25 15:39 | DIAGNOSTIC IMAGING REPORT ---
L SHOULDER MIN 2 VIEWS ROUTINE HISTORY: 67 years-old Male MODERATE BACK PAIN,LT RT SHOULDER PAIN acute left shoulder pain status post fall COMPARISON: Chest radiograph 03/21/2014 TECHNIQUE: 3 views of the left shoulder FINDINGS: Mild glenohumeral and chronic reticular osteoarthritis without acute fracture or dislocation. Mild spurring of the inferior aspect acromium. Imaged lung vann appear clear. IMPRESSION: Mild degenerative changes without acute fracture or dislocation. The above report was generated using voice recognition software. It may contain grammatical, syntax or spelling errors. Electronically signed by: Davis Dodd M.D. 07/25/2017 3:37 PM Dictated Date/Time: 07/25/2017 3:36 PM
--- NOTE | 2017-07-25 15:45 | DIAGNOSTIC IMAGING REPORT ---
RIGHT SHOULDER 4 VIEWS CLINICAL HISTORY: Fall. Chronic right shoulder pain. FINDINGS: 4 views the right shoulder are compared to study dated 05/13/2017. The skeletal structures are osteopenic. There is no radiographic evidence of fracture or dislocation. Productive degenerative change is seen at the acromioclavicular joint. The glenohumeral articulation appears preserved. Mild arthritic change is noted in the greater tuberosity of the humeral head. The overlying soft tissues are within normal limits. The partially imaged right upper lobe lung parenchyma appears clear. IMPRESSION: Osteopenia and mild arthritic change as above. No acute bony abnormality is seen. Electronically signed by: Luis Manuel Case M.D. 07/25/2017 3:43 PM Dictated Date/Time: 07/25/2017 3:42 PM
--- NOTE | 2017-07-25 16:03 | DIAGNOSTIC IMAGING REPORT ---
LUMBAR SPINE 5 VIEWS CLINICAL HISTORY: Chronic low back pain. FINDINGS: Five views of the lumbar spine are compared to study dated to 10/29/16. The skeletal structures are osteopenic. Vertebral body height is maintained throughout the lumbar spine. There is minimal anterolisthesis at L4-L5. Alignment is otherwise preserved. There is no radiographic evidence of acute fracture or malalignment. Moderate lumbar levocurvature is centered at L3-L4. The transverse and spinous processes appear intact. There is no evidence of spondylolysis. Small anterior osteophytes are seen throughout. Advanced facet arthropathy is seen in the lower lumbar region. Mild multilevel degenerative disc space narrowing is seen at all levels. The visualized sacrum and bony pelvis appear intact. Sclerotic change is noted in the sacroiliac joints. There is atherosclerotic calcification of the abdominal aorta. There is a nonobstructed abdominal bowel gas pattern noting moderate constipation. The heart appears enlarged and the mitral annulus is densely calcified. IMPRESSION: 1. No acute bony abnormality is seen involving the lumbosacral spine. 2. Osteopenia with lumbosacral spondylosis and scoliosis as above. This has not significantly changed from 10/29/2016. Dictated: 07/25/2017 3:33 PM Transcribed: 07/25/2017 4:02 PM Elicia Electronically signed by: Luis Manuel Case M.D. 07/25/2017 4:31 PM Dictated Date/Time: 07/25/2017 3:33 PM
== END | disposition home or self-care (01) ==
LOC: C.RAD 14:33
PROVIDERS: ATTEND Internal Medicine
DX: M85.812 Other specified disorders of bone density and structure, left shoulder (principal); M85.811 Other specified disorders of bone density and structure, right shoulder; M85.89 Other specified disorders of bone density and structure, multiple sites; M47.817 Spondylosis without myelopathy or radiculopathy, lumbosacral region

== ENCOUNTER 2017-07-27 17:16 | Emergency (ER) | payer OTHER ==
[~2017-07-27] VITALS: Ht 167.6 cm; Wt 62.6 kg
[~2017-07-27 17:16] MED LIST changes: -DOXY100C76 PO
[2017-07-27 17:20] VITALS: TEMP 36.5; Ht 167.6 cm; Wt 62.6 kg
--- NOTE | 2017-07-27 17:42 | EMERGENCY ROOM VISIT NOTE ---
History Report prepared by Terry: Carlos Crespo Under the Supervision of: Dr. Paul Jhaveri M.D. First contact with patient: 17:29 Chief Complaint: REFERRED BY DOCTOR Stated Complaint: REFERRED BY DR. LEON History of Present Illness The patient is a 67 year old male who presents to the Emergency Room from Dr. Leon's office with complaints of increasing falls over the past month. Per the patient's family, the patient is not sure why the patient was sent here from Dr. Leon's office. The patient was being seen at Dr. Leon's office prior to arrival for pre-op testing for a hernia. The patient states that he has had low back and neck pain for a few years now due to disc issues. He adds that he has had a lot of falls recently. Per the patient's family, the patient has been tripping forward on a lot of the falls, and one fall "did a lot of damage". The patient has been complaining a lot recently of shoulder and neck pain. He notes that he has hit his head on some of the falls. He adds that he has lost around 35 pounds within the past 6 months, and the patient's family agrees. He denies any headaches or abdominal pain currently. He lives by himself at home. The patient is an ex-smoker, and currently uses E-cigarettes. Source of History: patient, family Onset: Over past month Position: other (global - falls) Symptom Intensity: one fall "did a lot of damage" Timing: other (increasing) Associated Symptoms: + neck pain, + back pain, No headache, No abdominal pain Note: Associated symptoms: Complaining of shoulder pain recently. Lost around 35 pounds in past 6 months. Review of Systems See HPI for pertinent positives & negatives. A total of 10 systems reviewed and were otherwise negative. Past Medical & Surgical Medical Problems: (1) Nephrolithiasis Family History Diabetes mellitus Hypertension Hypertension Kidney disease Kidney stones Lung disease Social History Smoking Status: Former Smoker (now using E-cigarettes) Alcohol Use: none Drug Use: none Marital Status: single Housing Status: lives alone Occupation Status: retired Current/Historical Medications Scheduled Amlodipine (Norvasc), 2.5 MG PO QAM Doxycycline Monohydrate (Monodox), 100 MG PO BID Ibuprofen Tab (Advil), 200 MG PO PRN Metoprolol Succinate (Metoprolol Succinate ER), 100 MG PO QAM Pantoprazole (Protonix), 40 MG PO QAM Sertraline (Zoloft), 50 MG PO HS Tamsulosin Hcl (Flomax), 0.4 MG PO HS Allergies Coded Allergies: Bacitracin (Verified Allergy, Unknown, PT DENIES-ON MEDICAL RECORD, ) Neomycin (Verified Allergy, Unknown, PT DENIES-ON MEDICAL RECORD, 07/27/17) Polymyxin B (Verified Allergy, Unknown, PT DENIES-ON MEDICAL RECORD, ) Physical Exam Vital Signs Date Time Temp Pulse Resp B/P (MAP) Pulse Ox O2 Delivery O2 Flow Rate FiO2 07/27/17 21:56 55 18 97/56 99 07/27/17 19:09 51 18 101/53 100 Room Air 07/27/17 18:02 62 07/27/17 17:50 100 Room Air 07/27/17 17:20 36.5 73 20 102/64 99 Room Air Physical Exam GENERAL: Patient is a 67 year old male who is cachectic in appearance. HEAD: Normocephalic atraumatic EYES: Ocular movements intact pupils equal and react to light OROPHARYNX mucous membranes are moist no exudates present no erythema or edema present NECK: Supple no nuchal rigidity CHEST: Good equal expansion LUNGS: Clear and equal to auscultation CARDIAC: Normal S1 and S2 ABDOMEN: Soft nontender no guarding BACK: No CVA tenderness EXTREMITIES: No pain upon palpation normal muscle strength in all groups no clubbing cyanosis or edema NEURO: Patient is following commands and answering questions appropriately. Alert and oriented x3 Cranial Nerves 2-12 grossly intact Medical Decision & Procedures ER Provider Diagnostic Interpretation: CT results as stated below per my review and radiologist interpretation: CT SCAN OF THE THORACIC SPINE WITHOUT IV CONTRAST CLINICAL HISTORY: Back pain. Fall. COMPARISON STUDY: Radiographs of the thoracic spine dated 07/25/2017. MRI of the thoracic spine dated 03/23/2014. CT scan of the chest performed concurrently on 07/27/2017. TECHNIQUE: CT scan of the thoracic spine is performed from the lower cervical spine to the upper lumbar spine. Images are reviewed in the axial, sagittal, and coronal planes. IV contrast was not administered specifically for this examination. There is IV contrast present from the concurrently performed CT scan of the chest. A dose lowering technique was utilized adhering to the principles of ALARA. FINDINGS: The skeletal structures are osteopenic. There is no evidence of fracture or malalignment. Vertebral body height and alignment are maintained throughout the thoracic spine. There is thoracic dextroscoliosis centered at T7. Tiny anterior osteophytes are seen in the midthoracic region. The transverse and spinous processes appear intact. No lytic or blastic lesion is seen. There is no evidence of large disc herniation by CT. The central canal is patent as visualized. Mild multilevel degenerative disc space narrowing is observed. There are healed left posterior rib fractures. No acute fracture is seen involving the imaged posterior ribs. The imaged lung parenchyma is clear noting dependent atelectasis. The heart is enlarged and the mitral annulus is densely calcified. The paraspinous soft tissues are normal as visualized. A 2 cm subcutaneous nodule in the right posterior upper back likely represents a sebaceous cyst. IMPRESSION: 1. There is no evidence of fracture or malalignment involving the thoracic spine. 2. Osteopenia with degenerative change and scoliosis as above. Dictated: 07/27/2017 7:34 PM Transcribed: 07/27/2017 7:59 PM [email or web address]_[email or web address] Electronically signed by: Luis Manuel Case M.D. 07/27/2017 8:07 PM Dictated Date/Time: 07/27/2017 7:[address] SCAN OF THE LUMBAR SPINE WITHOUT IV CONTRAST CLINICAL HISTORY: Low back pain. Recent falls. COMPARISON STUDY: Abdominal CT performed concurrently on 07/27/2017. Lumbar spine radiographs dated 07/25/2017. Lumbar spine MRI dated 03/23/2014. TECHNIQUE: CT scan of the lumbar spine is performed from the lower thoracic spine to the sacrum. Images are reviewed in the axial, sagittal, and coronal planes. IV contrast was not administered for this examination. There is IV contrast present from the concurrently performed abdominal CT. A dose lowering technique was utilized adhering to the principles of ALARA. FINDINGS: The skeletal structures are osteopenic. No fracture is seen. Vertebral body height is maintained throughout the lumbar spine. There is 11 mm of anterolisthesis at L4-L5. Alignment is otherwise preserved. Iyuc-gw-pvyujcby lumbar levocurvature is centered at L3. Tiny anterior osteophytes are seen in the lower lumbar region. The transverse and spinous processes appear intact. There is no evidence of spondylolysis. No lytic or blastic lesion is identified. Significant facet arthropathy is seen in the lower lumbar region. There is ndzawhhn-lu-xstpybnt disc space narrowing at L5-S1 with associated endplate sclerosis. A large posterior disc osteophyte complex is seen at this level. Gdkzyeka-xt-ycuspvyq disc space narrowing is also seen at L4-L5. Only mild narrowing is present at the remaining lumbar levels. Posterior disc bulge is seen at L3-L4. No high-grade central canal stenosis is suggested by CT. The visualized sacrum and bony pelvis appear intact. Mild degenerative change and vacuum phenomenon is seen at the sacroiliac joints. There is a hemitransitional left lumbosacral segment. The paraspinous soft tissues are within normal limits. The spleen appears enlarged. Cirrhotic liver morphology is noted. Atherosclerotic calcification is present in the abdominal aorta. IMPRESSION: 1. There is no evidence of fracture or malalignment involving the lumbar spine. 2. Osteopenia and spondylotic change as above. Dictated: 07/27/2017 7:24 PM Transcribed: 07/27/2017 7:35 PM Julito Electronically signed by: Luis Manuel Case M.D. 07/27/2017 7:40 PM Dictated Date/Time: 07/27/2017 7:[address] SCAN OF THE BRAIN WITHOUT IV CONTRAST CLINICAL HISTORY: Change in mental status. Falls. COMPARISON STUDY: CT of the brain dated 10/29/16. TECHNIQUE: Unenhanced axial CT scan of the brain is performed from the vertex to the skull base. FINDINGS: Brain parenchyma: There are age-related involutional changes noting moderate subcortical and periventricular microangiopathic change. There is no hemorrhage, mass effect, or evidence of acute territorial ischemia by CT criteria. Moon-white matter is preserved. No extra-axial fluid collection is seen. Ventricles, sulci, cisterns: Prominent secondary to involutional change. Intracranial vasculature: There is dense atherosclerotic calcification of the cavernous carotid and vertebral arteries. Calvarium: The skeletal structures are osteopenic. No depressed calvarial fracture is seen. Chronic nasal bone deformity is similar to previous. Sinuses and mastoids: Trace mucosal thickening is seen in the maxillary antra. The remaining visualized paranasal sinuses are clear. The mastoid air cells are well pneumatized. Orbits: The bony orbits are grossly intact. IMPRESSION: There is no hemorrhage, mass effect, or evidence of acute territorial ischemia by CT criteria. Electronically signed by: Luis Manuel Case M.D. 07/27/2017 6:57 PM Dictated Date/Time: 07/27/2017 6:[address] SCAN OF THE CHEST, ABDOMEN, AND PELVIS WITH IV CONTRAST CLINICAL HISTORY: Weight loss. Falls. COMPARISON STUDY: Chest x-ray dated 03/21/2014. Abdominal CT dated 06/03/2014. TECHNIQUE: Following the IV administration of 120 of Optiray 320, CT scan of the chest, abdomen, and pelvis was performed from the thoracic inlet to the proximal femora. Images are reviewed in the axial, sagittal, and coronal planes. IV contrast was administered without complication. Automated dose control exposure was utilized. A dose lowering technique was utilized adhering to the principles of ALARA. The examination is modestly degraded by motion artifact. CT DOSE: 1620.31 mGy.cm FINDINGS: CHEST: Thyroid: Imaged portions of the thyroid gland are normal in attenuation. The left lobe of the thyroid gland is diminutive. Thoracic aorta: There is mild atherosclerotic calcification of the thoracic aorta, which is normal in caliber and demonstrates standard 3-vessel arch anatomy. No dissection is seen. Pulmonary vasculature: The main pulmonary arteries are dilated indicating pulmonary artery hypertension. There are no filling defects identified in the central pulmonary vessels to indicate pulmonary embolus. Note that this examination was not protocoled for evaluation of the pulmonary arteries. Heart: The heart is enlarged and without pericardial effusion. The coronary arteries and mitral annulus are densely calcified. Lungs and pleural spaces: No airspace consolidation, pleural effusion, or pneumothorax is seen. There is dependent atelectasis. A punctate calcified granulomas are observed. The trachea and central airways are clear. Mediastinum: There is no mediastinal lymphadenopathy. Brooke: Clear. Axillae: There is no axillary lymphadenopathy. Bony thorax: The skeletal structures are osteopenic. Degenerative change and kyphoscoliosis are noted in the thoracic spine. No lytic or blastic lesions are identified. No acute fracture is seen. There are healed right anterior rib fractures. Soft tissues: The patient is cachectic. ABDOMEN AND PELVIS: Liver: The contrast-enhanced liver is cirrhotic in morphology and heterogeneous in attenuation. There is nodularity of the surface contour, hypertrophy of the left lobe and caudate, and widening of the fissures. Fibrosis/scarring in the right lobe is similar to previous. There is no intrahepatic or ductal dilatation. The hepatic veins and portal veins are patent. Gallbladder: Unremarkable. Spleen: The spleen is mildly enlarged measuring 13.6 cm in length. Pancreas: Unremarkable. Adrenal glands: Unremarkable. Kidneys: The contrast enhanced kidneys are atrophic and without hydronephrosis. The kidneys enhance symmetrically. Abdominal vasculature: The abdominal aorta is normal in course and caliber noting mild to moderate atherosclerotic calcification. Stomach and bowel: A small hiatal hernia is identified. The duodenum is normal in configuration. A left inguinal hernia contains a segment of small bowel. No bowel obstruction is seen. There is moderate sigmoid diverticulosis without CT evidence of acute diverticulitis. Moderate fecal retention is noted in the right colon. The appendix is well-visualized and normal. Peritoneum: There is no intraperitoneal free air or abdominal ascites. Lymphadenopathy: None. Pelvic viscera: The prostate gland is mildly enlarged and heterogeneous. The bladder wall appears thickened and trabeculated suggesting chronic outlet obstruction. A left inguinal hernia contains a segment of bowel. Skeletal structures: The skeletal structures are osteopenic. There is moderate lumbosacral spondylosis and scoliosis. Grade 1 anterolisthesis is seen at L4-L5. No acute fracture is seen. No lytic or blastic lesions are identified. IMPRESSION: 1. There is no acute posttraumatic intrathoracic abnormality. 2. There is no airspace consolidation, pleural effusion, or pneumothorax. 3. Cardiomegaly. 4. Cirrhotic liver morphology with bandlike parenchymal scarring in the right lobe. 5. Mild splenomegaly. 6. There is no evidence of solid organ injury in the abdomen or pelvis. 7. Moderate sigmoid diverticulosis without CT evidence of acute diverticulitis. 8. No acute infectious or inflammatory findings are seen in the abdomen or pelvis. 9. A left inguinal hernia contains a nonobstructed segment of small bowel. 10. Additional findings as above. Electronically signed by: Luis Manuel Case M.D. 07/27/2017 7:15 PM Dictated Date/Time: 07/27/2017 7:[address] SCAN OF THE CERVICAL SPINE CLINICAL HISTORY: Neck pain. COMPARISON STUDY: CT scan of the cervical spine dated 10/29/16. TECHNIQUE: CT scan of the cervical spine is performed from the skull base to the upper thoracic spine. Images are reviewed in the axial, sagittal, and coronal planes. IV contrast was not administered for this examination. A dose lowering technique was utilized adhering to the principles of ALARA. FINDINGS: Skeletal structures: The skeletal structures are osteopenia. There is no evidence of fracture or subluxation involving the cervical spine. Vertebral body height is maintained. There is mild anterolisthesis at C4-C5 alignment is otherwise preserved. There is mild hyperlordosis. The odontoid process and lateral masses are intact. The atlantoaxial articulation is preserved noting productive degenerative change. The spinous processes appear intact. Anterior osteophytes are seen throughout. There is advanced multilevel cervical spondylosis. Uncovertebral and facet arthropathy contribute to neural foraminal narrowing at most levels. Intervertebral discs: Moderate to advanced degenerative disc space narrowing seen at C5-C6 and C6-C7. Mild to moderate narrowing is seen at C4-C5. Central canal: Posterior disc osteophyte complexes at C4-C5, C5-C6, and C6-C7 may contribute to acquired compromise of the central canal. Soft tissues: The prevertebral and paraspinous soft tissues are within normal limits. There is atherosclerotic calcification of the carotid bulbs. A 2.0 cm subcutaneous lesion in the right lower neck likely represents a sebaceous cyst. The left thyroid lobe is diminutive. Calvarium: The visualized calvarium at the skull base appears intact. Brain parenchyma: Partially visualized brain parenchyma the skull base is within normal limits noting age-related involutional change. Sinuses and mastoids: The visualized paranasal sinuses are clear. The mastoid air cells are well pneumatized. Lung apices: Clear as visualized. IMPRESSION: 1. There is no evidence of fracture or subluxation involving the cervical spine. 2. Osteopenia and spondylotic change as above. 3. A 2 cm subcutaneous lesion in the soft tissues of the posterior right lower neck likely resents a sebaceous cyst. Clinical correlation will be required. Electronically signed by: Luis Manuel Case M.D. 07/27/2017 7:20 PM Dictated Date/Time: 07/27/2017 7:[address] SCAN OF THE CHEST, ABDOMEN, AND PELVIS WITH IV CONTRAST CLINICAL HISTORY: Weight loss. Falls. COMPARISON STUDY: Chest x-ray dated 03/21/2014. Abdominal CT dated 06/03/2014. TECHNIQUE: Following the IV administration of 120 of Optiray 320, CT scan of the chest, abdomen, and pelvis was performed from the thoracic inlet to the proximal femora. Images are reviewed in the axial, sagittal, and coronal planes. IV contrast was administered without complication. Automated dose control exposure was utilized. A dose lowering technique was utilized adhering to the principles of ALARA. The examination is modestly degraded by motion artifact. CT DOSE: 1620.31 mGy.cm FINDINGS: CHEST: Thyroid: Imaged portions of the thyroid gland are normal in attenuation. The left lobe of the thyroid gland is diminutive. Thoracic aorta: There is mild atherosclerotic calcification of the thoracic aorta, which is normal in caliber and demonstrates standard 3-vessel arch anatomy. No dissection is seen. Pulmonary vasculature: The main pulmonary arteries are dilated indicating pulmonary artery hypertension. There are no filling defects identified in the central pulmonary vessels to indicate pulmonary embolus. Note that this examination was not protocoled for evaluation of the pulmonary arteries. Heart: The heart is enlarged and without pericardial effusion. The coronary arteries and mitral annulus are densely calcified. Lungs and pleural spaces: No airspace consolidation, pleural effusion, or pneumothorax is seen. There is dependent atelectasis. A punctate calcified granulomas are observed. The trachea and central airways are clear. Mediastinum: There is no mediastinal lymphadenopathy. Brooke: Clear. Axillae: There is no axillary lymphadenopathy. Bony thorax: The skeletal structures are osteopenic. Degenerative change and kyphoscoliosis are noted in the thoracic spine. No lytic or blastic lesions are identified. No acute fracture is seen. There are healed right anterior rib fractures. Soft tissues: The patient is cachectic. ABDOMEN AND PELVIS: Liver: The contrast-enhanced liver is cirrhotic in morphology and heterogeneous in attenuation. There is nodularity of the surface contour, hypertrophy of the left lobe and caudate, and widening of the fissures. Fibrosis/scarring in the right lobe is similar to previous. There is no intrahepatic or ductal dilatation. The hepatic veins and portal veins are patent. Gallbladder: Unremarkable. Spleen: The spleen is mildly enlarged measuring 13.6 cm in length. Pancreas: Unremarkable. Adrenal glands: Unremarkable. Kidneys: The contrast enhanced kidneys are atrophic and without hydronephrosis. The kidneys enhance symmetrically. Abdominal vasculature: The abdominal aorta is normal in course and caliber noting mild to moderate atherosclerotic calcification. Stomach and bowel: A small hiatal hernia is identified. The duodenum is normal in configuration. A left inguinal hernia contains a segment of small bowel. No bowel obstruction is seen. There is moderate sigmoid diverticulosis without CT evidence of acute diverticulitis. Moderate fecal retention is noted in the right colon. The appendix is well-visualized and normal. Peritoneum: There is no intraperitoneal free air or abdominal ascites. Lymphadenopathy: None. Pelvic viscera: The prostate gland is mildly enlarged and heterogeneous. The bladder wall appears thickened and trabeculated suggesting chronic outlet obstruction. A left inguinal hernia contains a segment of bowel. Skeletal structures: The skeletal structures are osteopenic. There is moderate lumbosacral spondylosis and scoliosis. Grade 1 anterolisthesis is seen at L4-L5. No acute fracture is seen. No lytic or blastic lesions are identified. IMPRESSION: 1. There is no acute posttraumatic intrathoracic abnormality. 2. There is no airspace consolidation, pleural effusion, or pneumothorax. 3. Cardiomegaly. 4. Cirrhotic liver morphology with bandlike parenchymal scarring in the right lobe. 5. Mild splenomegaly. 6. There is no evidence of solid organ injury in the abdomen or pelvis. 7. Moderate sigmoid diverticulosis without CT evidence of acute diverticulitis. 8. No acute infectious or inflammatory findings are seen in the abdomen or pelvis. 9. A left inguinal hernia contains a nonobstructed segment of small bowel. 10. Additional findings as above. Electronically signed by: Luis Manuel Case M.D 07/27/2017 7:15 PM Dictated Date/Time: 07/27/2017 7:02 PM Laboratory Results 07/27/17 18:00 Red Blood Count 3.66, Mean Corpuscular Volume 85.8, Mean Corpuscular Hemoglobin 28.7, Mean Corpuscular Hemoglobin Concent 33.4, Mean Platelet Volume 8.8, Neutrophils (%) (Auto) 66.8, Lymphocytes (%) (Auto) 22.9, Monocytes (%) (Auto) 8.0, Eosinophils (%) (Auto) 1.9, Basophils (%) (Auto) 0.2, Neutrophils # (Auto) 2.77, Lymphocytes # (Auto) 0.95, Monocytes # (Auto) 0.33, Eosinophils # (Auto) 0.08, Basophils # (Auto) 0.01 07/27/17 18:00 Test 07/27/17 18:00 07/27/17 18:10 White Blood Count 4.15 K/uL (4.8-10.8) Red Blood Count 3.66 M/uL (4.7-6.1) Hemoglobin 10.5 g/dL (14.0-18.0) Hematocrit 31.4 % (42-52) Mean Corpuscular Volume 85.8 fL (80-100) Mean Corpuscular Hemoglobin 28.7 pg (25-34) Mean Corpuscular Hemoglobin Concent 33.4 g/dl (32-36) Platelet Count 173 K/uL (130-400) Mean Platelet Volume 8.8 fL (7.4-10.4) Neutrophils (%) (Auto) 66.8 % Lymphocytes (%) (Auto) 22.9 % Monocytes (%) (Auto) 8.0 % Eosinophils (%) (Auto) 1.9 % Basophils (%) (Auto) 0.2 % Neutrophils # (Auto) 2.77 K/uL (1.4-6.5) Lymphocytes # (Auto) 0.95 K/uL (1.2-3.4) Monocytes # (Auto) 0.33 K/uL (0.11-0.59) Eosinophils # (Auto) 0.08 K/uL (0-0.5) Basophils # (Auto) 0.01 K/uL (0-0.2) RDW Standard Deviation 43.1 fL (36.4-46.3) RDW Coefficient of Variation 13.7 % (11.5-14.5) Immature Granulocyte % (Auto) 0.2 % Immature Granulocyte # (Auto) 0.01 K/uL (0.00-0.02) Est Creatinine Clear Calc Drug Dose 66.4 ml/min Estimated GFR () 96.7 Estimated GFR (Non- 83.5 BUN/Creatinine Ratio 22.3 (10-20) Calcium Level 8.9 mg/dl (8.5-10.1) Iron Level 23 mcg/dl (35-175) Total Iron Binding Capacity 339 mcg/dl (250-450) Transferrin 261 mg/dl (200-360) Transferrin % Saturation 6 % (20-50) Ferritin 195.0 ng/ml (8.0-388.0) Total Bilirubin 0.5 mg/dl (0.2-1) Direct Bilirubin 0.2 mg/dl (0-0.2) Aspartate Amino Transf (AST/SGOT) 43 U/L (15-37) Alanine Aminotransferase (ALT/SGPT) 33 U/L (12-78) Alkaline Phosphatase 97 U/L (45-117) Ammonia < 10.0 umol/L (11-32) Total Creatine Kinase 278 U/L (39-308) Creatine Kinase MB 14.5 ng/ml (0.5-3.6) Creatine Kinase MB Ratio 5.2 (0-3.0) Troponin I < 0.015 ng/ml (0-0.045) Total Protein 7.1 gm/dl (6.4-8.2) Albumin 3.0 gm/dl (3.4-5.0) Thyroid Stimulating Hormone (TSH) 3.450 uIu/ml (0.300-4.500) Lyme Disease IgG Antibody POS (NEG) Bedside Hemoglobin 10.5 g/dl (14.0-18.0) Bedside Hematocrit 31 % (42-52) Bedside Sodium 137 mEq/L (135-144) Bedside Potassium 3.8 mEq/L (3.3-5.0) Bedside Chloride 99 mEq/L (101-112) Bedside Total CO2 26 mEq/l (24-31) Anion Gap 16.0 mmol/L (16-25) Bedside Blood Urea Nitrogen 21 mg/dl (7-18) Bedside Creatinine 0.9 mg/dl (0.6-1.3) Bedside Glucose (other) 114 mg/dl (70-99) Bedside Ionized Calcium (Janeth) 1.22 mmol/l (1.12-1.32) Labs reviewed by ED physician. Medications Administered Medications (Trade) Dose Ordered Sig/Vicki Route Start Time Stop Time Status Last Admin Dose Admin Morphine Sulfate (MoRPHine SULFATE INJ) 4 mg NOW STAT IV 07/27/17 17:45 07/27/17 17:46 DC 07/27/17 18:26 4 MG Ondansetron HCl (Zofran Inj) 4 mg NOW STAT IV 07/27/17 17:45 07/27/17 17:46 DC 07/27/17 18:26 4 MG Ketorolac Tromethamine (Toradol Inj) 30 mg NOW STAT IV 07/27/17 17:45 07/27/17 17:46 DC 07/27/17 18:26 30 MG Ceftriaxone Sodium 2 gm/ Dextrose 50 ml @ 100 mls/hr 2200 IV 07/27/17 22:00 07/27/17 22:29 07/27/17 22:00 100 MLS/HR ECG Indication: weakness Rate (beats per minute): 63 Rhythm: normal sinus Findings: no acute ischemic change, no ectopy ED Course 1729: Past medical records reviewed. The patient was evaluated in room B11B. A complete history and physical examination was performed. 1744: Ordered Toradol Inj 30 mg IV, Zofran Inj 4 mg IV, Morphine Sulfate Inj 4 mg IV. 2029: I reevaluated and updated the patient. The patient and his family will talk to case management about options. 2126: Ordered Rocephin Inj 2 gm IV. 2139: Upon reexamination the patient is resting. I discussed results and treatment plan with the patient and his family. They verbalize agreement and understanding. The patient is ready for discharge. Medical Decision Differential diagnosis: Etiologies such as metabolic, infection, hypo/hyperglycemia, electrolyte abnormalities, cardiac sources, intracerebral event, toxicologic, neurologic, as well as others were entertained. This is a 67-year-old male who presents emergency department complaining of multiple falls at home. The patient was sent in by the primary care physician' s office with orders for transferrin level, ammonia, CBC as well as comprehensive metabolic profile. Based on the fact that the patient has lost large amounts of weight over the past year he was sent for a CAT scan of the chest abdomen pelvis as well as the spine. The patient does not appear to have any acute fractures dislocation subluxations or masses. Based on this finding I feel that the patient can be safely discharged as he does not meet hospital admission criteria however I am concerned that the patient is high risk for fall so I did have case management meet with the patient in the attempt to get the patient into rehabilitation. The patient however is adamantly refusing rehabilitation. His Lyme titers are positive therefore I did start him on 2 g of Rocephin and will continue him on doxycycline with orders to follow-up with Dr. lópez office. Patient and family were in agreement with the treatment plan. Medication Reconcilliation Current Medication List: was personally reviewed by me Blood Pressure Screening Patient's blood pressure: Normal blood pressure Impression Primary Impression: Multiple falls Scribe Attestation The scribe's documentation has been prepared under my direction and personally reviewed by me in its entirety. I confirm that the note above accurately reflects all work, treatment, procedures, and medical decision making performed by me. Departure Information Dispostion Home / Self-Care Prescriptions Doxycycline Monohydrate (Monodox) 100 Mg Cap 100 MG PO BID for 14 Days, #28 CAP Prov: Paul Jhaveri MD 07/27/17 Referrals Xavier Leon M.D. (PCP) Forms HOME CARE DOCUMENTATION FORM, IMPORTANT VISIT INFORMATION, WORK / SCHOOL INSTRUCTIONS Patient Instructions ED Bite Tick Abx Tx, My [facility] Additional Instructions Follow up with Dr Leon's office Culture results are usually available in approx 48 hours You have been examined and treated today on an emergency basis only. This is not a substitute for, or an effort to provide, complete comprehensive medical care. It is impossible to recognize and treat all injuries or illnesses in a single emergency department visit. It is therefore important that you follow up closely with Dr Leon. Call as soon as possible for an appointment. Thank you for your time and consideration. I look forward to speaking with you again soon. Please don't hesitate to call us if you have any questions.
[2017-07-27] MEDS ORDERED: MoRPHine SULFATE 4 MG/ML 1 ML CARP\\VIAL IV STA (17:45)
[2017-07-27] MEDS ORDERED: ONDANSETRON INJ 2 MG/ML 2 ML VIAL IV STA (17:45)
[2017-07-27] MEDS ORDERED: KETOROLAC TROMETHAMINE 30 MG/ML VIAL IV STA (17:45)
[2017-07-27 17:50] VITALS: O2SAT 100
[2017-07-27 18:15] LABS: BASO % 0.2 %; BASO ABS # 0.01 K/uL (0-0.2); COMPLETE YES; EOS % 1.9 %; HEMATOCRIT 31.4 % (42-52); IG% 0.2 %; LYMPH % 22.9 %; LYMPH ABS # 0.95 K/uL (1.2-3.4); MEAN CELL VOLUME 85.8 fL (80-100); MEAN CORPUSCULAR HEMOGLOBIN 28.7 pg (25-34); MEAN CORPUSCULAR HGB CONC 33.4 g/dl (32-36); MEAN PLATELET VOLUME 8.8 fL (7.4-10.4); NEUT % 66.8 %; PLATELET COUNT 173 K/uL (130-400); RED BLOOD COUNT 3.66 M/uL (4.7-6.1); WHITE BLOOD COUNT 4.15 K/uL (4.8-10.8)
[2017-07-27 18:22] LABS: ISTAT CREATININE 0.9 mg/dl (0.6-1.3); ISTAT HEMOGLOBIN 10.5 g/dl (14.0-18.0); ISTAT IONIZED CALCIUM 1.22 mmol/l (1.12-1.32)
[2017-07-27 18:35] LABS: ALT/SGPT 33 U/L (12-78); AST/SGOT 43 U/L (15-37); BLOOD UREA NITROGEN 21 mg/dl (7-18); BUN/CREATININE RATIO 22.3 (10-20); CALCIUM 8.9 mg/dl (8.5-10.1); CARBON DIOXIDE 28 mmol/L (21-32); CHLORIDE 104 mmol/L (98-107); CREATININE 0.93 mg/dl (0.60-1.40); GLUCOSE 117 mg/dl (70-99); POTASSIUM 3.8 mmol/L (3.5-5.1); SODIUM 136 mmol/L (136-145)
[2017-07-27 18:44] LABS: ALKALINE PHOSPHATASE 97 U/L (45-117); CKMB/CK RATIO 5.2 (0-3.0); TOTAL IRON BINDING CAPACITY 314 mcg/dl (250-450)
--- NOTE | 2017-07-27 18:59 | DIAGNOSTIC IMAGING REPORT ---
CT SCAN OF THE BRAIN WITHOUT IV CONTRAST CLINICAL HISTORY: Change in mental status. Falls. COMPARISON STUDY: CT of the brain dated 10/29/16. TECHNIQUE: Unenhanced axial CT scan of the brain is performed from the vertex to the skull base. FINDINGS: Brain parenchyma: There are age-related involutional changes noting moderate subcortical and periventricular microangiopathic change. There is no hemorrhage, mass effect, or evidence of acute territorial ischemia by CT criteria. Moon-white matter is preserved. No extra-axial fluid collection is seen. Ventricles, sulci, cisterns: Prominent secondary to involutional change. Intracranial vasculature: There is dense atherosclerotic calcification of the cavernous carotid and vertebral arteries. Calvarium: The skeletal structures are osteopenic. No depressed calvarial fracture is seen. Chronic nasal bone deformity is similar to previous. Sinuses and mastoids: Trace mucosal thickening is seen in the maxillary antra. The remaining visualized paranasal sinuses are clear. The mastoid air cells are well pneumatized. Orbits: The bony orbits are grossly intact. IMPRESSION: There is no hemorrhage, mass effect, or evidence of acute territorial ischemia by CT criteria. Electronically signed by: Luis Manuel Case M.D. 07/27/2017 6:57 PM Dictated Date/Time: 07/27/2017 6:54 PM
[2017-07-27] MEDS ORDERED: OPTIRAY 320 IV PRN (19:00)
--- NOTE | 2017-07-27 19:17 | DIAGNOSTIC IMAGING REPORT ---
CT SCAN OF THE CHEST, ABDOMEN, AND PELVIS WITH IV CONTRAST CLINICAL HISTORY: Weight loss. Falls. COMPARISON STUDY: Chest x-ray dated 03/21/2014. Abdominal CT dated 06/03/2014. TECHNIQUE: Following the IV administration of 120 of Optiray 320, CT scan of the chest, abdomen, and pelvis was performed from the thoracic inlet to the proximal femora. Images are reviewed in the axial, sagittal, and coronal planes. IV contrast was administered without complication. Automated dose control exposure was utilized. A dose lowering technique was utilized adhering to the principles of ALARA. The examination is modestly degraded by motion artifact. CT DOSE: 1620.31 mGy.cm FINDINGS: CHEST: Thyroid: Imaged portions of the thyroid gland are normal in attenuation. The left lobe of the thyroid gland is diminutive. Thoracic aorta: There is mild atherosclerotic calcification of the thoracic aorta, which is normal in caliber and demonstrates standard 3-vessel arch anatomy. No dissection is seen. Pulmonary vasculature: The main pulmonary arteries are dilated indicating pulmonary artery hypertension. There are no filling defects identified in the central pulmonary vessels to indicate pulmonary embolus. Note that this examination was not protocoled for evaluation of the pulmonary arteries. Heart: The heart is enlarged and without pericardial effusion. The coronary arteries and mitral annulus are densely calcified. Lungs and pleural spaces: No airspace consolidation, pleural effusion, or pneumothorax is seen. There is dependent atelectasis. A punctate calcified granulomas are observed. The trachea and central airways are clear. Mediastinum: There is no mediastinal lymphadenopathy. Brooke: Clear. Axillae: There is no axillary lymphadenopathy. Bony thorax: The skeletal structures are osteopenic. Degenerative change and kyphoscoliosis are noted in the thoracic spine. No lytic or blastic lesions are identified. No acute fracture is seen. There are healed right anterior rib fractures. Soft tissues: The patient is cachectic. ABDOMEN AND PELVIS: Liver: The contrast-enhanced liver is cirrhotic in morphology and heterogeneous in attenuation. There is nodularity of the surface contour, hypertrophy of the left lobe and caudate, and widening of the fissures. Fibrosis/scarring in the right lobe is similar to previous. There is no intrahepatic or ductal dilatation. The hepatic veins and portal veins are patent. Gallbladder: Unremarkable. Spleen: The spleen is mildly enlarged measuring 13.6 cm in length. Pancreas: Unremarkable. Adrenal glands: Unremarkable. Kidneys: The contrast enhanced kidneys are atrophic and without hydronephrosis. The kidneys enhance symmetrically. Abdominal vasculature: The abdominal aorta is normal in course and caliber noting mild to moderate atherosclerotic calcification. Stomach and bowel: A small hiatal hernia is identified. The duodenum is normal in configuration. A left inguinal hernia contains a segment of small bowel. No bowel obstruction is seen. There is moderate sigmoid diverticulosis without CT evidence of acute diverticulitis. Moderate fecal retention is noted in the right colon. The appendix is well-visualized and normal. Peritoneum: There is no intraperitoneal free air or abdominal ascites. Lymphadenopathy: None. Pelvic viscera: The prostate gland is mildly enlarged and heterogeneous. The bladder wall appears thickened and trabeculated suggesting chronic outlet obstruction. A left inguinal hernia contains a segment of bowel. Skeletal structures: The skeletal structures are osteopenic. There is moderate lumbosacral spondylosis and scoliosis. Grade 1 anterolisthesis is seen at L4-L5. No acute fracture is seen. No lytic or blastic lesions are identified. IMPRESSION: 1. There is no acute posttraumatic intrathoracic abnormality. 2. There is no airspace consolidation, pleural effusion, or pneumothorax. 3. Cardiomegaly. 4. Cirrhotic liver morphology with bandlike parenchymal scarring in the right lobe. 5. Mild splenomegaly. 6. There is no evidence of solid organ injury in the abdomen or pelvis. 7. Moderate sigmoid diverticulosis without CT evidence of acute diverticulitis. 8. No acute infectious or inflammatory findings are seen in the abdomen or pelvis. 9. A left inguinal hernia contains a nonobstructed segment of small bowel. 10. Additional findings as above. Electronically signed by: Luis Manuel Case M.D. 07/27/2017 7:15 PM Dictated Date/Time: 07/27/2017 7:02 PM
--- NOTE | 2017-07-27 19:21 | DIAGNOSTIC IMAGING REPORT ---
CT SCAN OF THE CERVICAL SPINE CLINICAL HISTORY: Neck pain. COMPARISON STUDY: CT scan of the cervical spine dated 10/29/16. TECHNIQUE: CT scan of the cervical spine is performed from the skull base to the upper thoracic spine. Images are reviewed in the axial, sagittal, and coronal planes. IV contrast was not administered for this examination. A dose lowering technique was utilized adhering to the principles of ALARA. FINDINGS: Skeletal structures: The skeletal structures are osteopenia. There is no evidence of fracture or subluxation involving the cervical spine. Vertebral body height is maintained. There is mild anterolisthesis at C4-C5 alignment is otherwise preserved. There is mild hyperlordosis. The odontoid process and lateral masses are intact. The atlantoaxial articulation is preserved noting productive degenerative change. The spinous processes appear intact. Anterior osteophytes are seen throughout. There is advanced multilevel cervical spondylosis. Uncovertebral and facet arthropathy contribute to neural foraminal narrowing at most levels. Intervertebral discs: Moderate to advanced degenerative disc space narrowing seen at C5-C6 and C6-C7. Mild to moderate narrowing is seen at C4-C5. Central canal: Posterior disc osteophyte complexes at C4-C5, C5-C6, and C6-C7 may contribute to acquired compromise of the central canal. Soft tissues: The prevertebral and paraspinous soft tissues are within normal limits. There is atherosclerotic calcification of the carotid bulbs. A 2.0 cm subcutaneous lesion in the right lower neck likely represents a sebaceous cyst. The left thyroid lobe is diminutive. Calvarium: The visualized calvarium at the skull base appears intact. Brain parenchyma: Partially visualized brain parenchyma the skull base is within normal limits noting age-related involutional change. Sinuses and mastoids: The visualized paranasal sinuses are clear. The mastoid air cells are well pneumatized. Lung apices: Clear as visualized. IMPRESSION: 1. There is no evidence of fracture or subluxation involving the cervical spine. 2. Osteopenia and spondylotic change as above. 3. A 2 cm subcutaneous lesion in the soft tissues of the posterior right lower neck likely resents a sebaceous cyst. Clinical correlation will be required. Electronically signed by: Luis Manuel Case M.D. 07/27/2017 7:20 PM Dictated Date/Time: 07/27/2017 7:15 PM
--- NOTE | 2017-07-27 19:35 | DIAGNOSTIC IMAGING REPORT ---
CT SCAN OF THE LUMBAR SPINE WITHOUT IV CONTRAST CLINICAL HISTORY: Low back pain. Recent falls. COMPARISON STUDY: Abdominal CT performed concurrently on 07/27/2017. Lumbar spine radiographs dated 07/25/2017. Lumbar spine MRI dated 03/23/2014. TECHNIQUE: CT scan of the lumbar spine is performed from the lower thoracic spine to the sacrum. Images are reviewed in the axial, sagittal, and coronal planes. IV contrast was not administered for this examination. There is IV contrast present from the concurrently performed abdominal CT. A dose lowering technique was utilized adhering to the principles of ALARA. FINDINGS: The skeletal structures are osteopenic. No fracture is seen. Vertebral body height is maintained throughout the lumbar spine. There is 11 mm of anterolisthesis at L4-L5. Alignment is otherwise preserved. Byip-dc-zopsgbhi lumbar levocurvature is centered at L3. Tiny anterior osteophytes are seen in the lower lumbar region. The transverse and spinous processes appear intact. There is no evidence of spondylolysis. No lytic or blastic lesion is identified. Significant facet arthropathy is seen in the lower lumbar region. There is koearmsl-uq-bikvjmqf disc space narrowing at L5-S1 with associated endplate sclerosis. A large posterior disc osteophyte complex is seen at this level. Ruooudmp-rb-fmoyrqus disc space narrowing is also seen at L4-L5. Only mild narrowing is present at the remaining lumbar levels. Posterior disc bulge is seen at L3-L4. No high-grade central canal stenosis is suggested by CT. The visualized sacrum and bony pelvis appear intact. Mild degenerative change and vacuum phenomenon is seen at the sacroiliac joints. There is a hemitransitional left lumbosacral segment. The paraspinous soft tissues are within normal limits. The spleen appears enlarged. Cirrhotic liver morphology is noted. Atherosclerotic calcification is present in the abdominal aorta. IMPRESSION: 1. There is no evidence of fracture or malalignment involving the lumbar spine. 2. Osteopenia and spondylotic change as above. Dictated: 07/27/2017 7:24 PM Transcribed: 07/27/2017 7:35 PM Julito Electronically signed by: Luis Manuel Case M.D. 07/27/2017 7:40 PM Dictated Date/Time: 07/27/2017 7:24 PM
--- NOTE | 2017-07-27 19:59 | DIAGNOSTIC IMAGING REPORT ---
CT SCAN OF THE THORACIC SPINE WITHOUT IV CONTRAST CLINICAL HISTORY: Back pain. Fall. COMPARISON STUDY: Radiographs of the thoracic spine dated 07/25/2017. MRI of the thoracic spine dated 03/23/2014. CT scan of the chest performed concurrently on 07/27/2017. TECHNIQUE: CT scan of the thoracic spine is performed from the lower cervical spine to the upper lumbar spine. Images are reviewed in the axial, sagittal, and coronal planes. IV contrast was not administered specifically for this examination. There is IV contrast present from the concurrently performed CT scan of the chest. A dose lowering technique was utilized adhering to the principles of ALARA. FINDINGS: The skeletal structures are osteopenic. There is no evidence of fracture or malalignment. Vertebral body height and alignment are maintained throughout the thoracic spine. There is thoracic dextroscoliosis centered at T7. Tiny anterior osteophytes are seen in the midthoracic region. The transverse and spinous processes appear intact. No lytic or blastic lesion is seen. There is no evidence of large disc herniation by CT. The central canal is patent as visualized. Mild multilevel degenerative disc space narrowing is observed. There are healed left posterior rib fractures. No acute fracture is seen involving the imaged posterior ribs. The imaged lung parenchyma is clear noting dependent atelectasis. The heart is enlarged and the mitral annulus is densely calcified. The paraspinous soft tissues are normal as visualized. A 2 cm subcutaneous nodule in the right posterior upper back likely represents a sebaceous cyst. IMPRESSION: 1. There is no evidence of fracture or malalignment involving the thoracic spine. 2. Osteopenia with degenerative change and scoliosis as above. Dictated: 07/27/2017 7:34 PM Transcribed: 07/27/2017 7:59 PM Elicia Electronically signed by: Luis Manuel Case M.D. 07/27/2017 8:07 PM Dictated Date/Time: 07/27/2017 7:34 PM
[2017-07-27 21:21] LABS: LYME DISEASE AB IGG POS (NEG); LYME DISEASE AB IGM POS (NEG)
[2017-07-27] MEDS ORDERED: CEFTRIAXONE SOD INJ 1 GM ADDVIAL IV STA (21:27)
[2017-07-27] MEDS ORDERED: DOXY100C76 PO (21:45)
[2017-07-27 21:56] VITALS: BP 97/56; PULSE 55; O2SAT 99
[2017-07-27] MEDS ORDERED: CEFTRIAXONE SOD INJ 2000 MG in DEXTROSE 5% 50ML IV SCH (22:00)
[2017-07-30 08:50] LABS: 18KDIGG BAND REACTIVE (NONREACTIVE); 23KDIGG BAND REACTIVE (NONREACTIVE); 23KDIGM BAND REACTIVE (NONREACTIVE); 28KDIGG BAND REACTIVE (NONREACTIVE); 30KDIGG BAND REACTIVE (NONREACTIVE); 39KDIGG BAND REACTIVE (NONREACTIVE); 39KDIGM BAND NONREACTIVE (NONREACTIVE); 41KDIGG BAND REACTIVE (NONREACTIVE); 41KDIGM BAND REACTIVE (NONREACTIVE); 45KDIGG BAND REACTIVE (NONREACTIVE); 58KDIGG BAND REACTIVE (NONREACTIVE); 66KDIGG BAND REACTIVE (NONREACTIVE); 93KDIGG BAND REACTIVE (NONREACTIVE)
== END 2017-07-27 22:30 | disposition home or self-care (01) ==
LOC: C.EDB 17:17
DX: M54.5 Low back pain (principal); Z91.81 History of falling; M85.80 Other specified disorders of bone density and structure, unspecified site; R41.82 Altered mental status, unspecified; R63.4 Abnormal weight loss; I51.7 Cardiomegaly; K57.30 Diverticulosis of large intestine without perforation or abscess without bleeding; R16.1 Splenomegaly, not elsewhere classified; K40.90 Unilateral inguinal hernia, without obstruction or gangrene, not specified as recurrent

== ENCOUNTER 2017-08-25 07:34 | Day surgery (SDC) | payer OTHER ==
[2017-07-25 13:19] VITALS: BMI 22.0
--- NOTE | 2017-07-25 13:55 | PAT Medication Instructions ---
Service Date Jul 25, 2017. Current Home Medication List Amlodipine (Norvasc), 2.5 MG PO QAM Ibuprofen Tab (Advil), 200 MG PO PRN Metoprolol Succinate (Metoprolol Succinate ER), 100 MG PO QAM Pantoprazole (Protonix), 40 MG PO QAM Sertraline (Zoloft), 50 MG PO HS Tamsulosin Hcl (Flomax), 0.4 MG PO HS Medication Instructions For Your Scheduled Surgery - Check with surgeon for instructions: Ibuprofen Tab (Advil), 200 MG PO PRN - Take the following medications the morning of surgery with a sip of water: Pantoprazole (Protonix), 40 MG PO QAM Metoprolol Succinate (Metoprolol Succinate ER), 100 MG PO QAM Amlodipine (Norvasc), 2.5 MG PO QAM - Take the following medications as scheduled the night before surgery: Tamsulosin Hcl (Flomax), 0.4 MG PO HS Sertraline (Zoloft), 50 MG PO HS If you have any questions please call us at [phone] or [phone] or [phone]
[2017-07-25 15:18] LABS: INR 1.1 (0.9-1.1); PARTIAL THROMBOPLASTIN RATIO 1.2; PROTHROMBIN TIME (PATIENT) 11.5 SECONDS (9.0-12.0)
[~2017-08-25] VITALS: Ht 167.6 cm; Wt 63.5 kg
[~2017-08-25 07:34] MED LIST changes: +CEFAZOLIN 2000MG IV PUSH 10 ML IV SCH; +LACTATED RINGER'S 1000ML 1,000 ML IV SCH; +LACTATED RINGER'S 1000ML IV SCH
[2017-08-25 08:25] VITALS: Ht 167.6 cm; Wt 63.5 kg
[2017-08-25] MEDS ORDERED: FENTANYL CITRATE INJ 50 MCG/1 ML 2 ML VIAL ONE ×2 (08:32→09:48)
[2017-08-25] MEDS ORDERED: MIDAZOLAM HCL 1 MG/ML 2ML VIAL ONE (08:32)
[2017-08-25] MEDS ORDERED: LIDOCAINE HCL 2% 2 ML VIAL (20MG/ML) ONE (08:32)
[2017-08-25] MEDS ORDERED: PROPOFOL IV EMULSION 10 MG/ML 20 ML VIAL IV ONE ×2 (08:32→09:43)
--- NOTE | 2017-08-25 09:04 | History & Physical Bridge Note ---
H&P Re-Evaluation Bridge Note: I have examined the patient, reviewed the History & Physical and in the interval since the performance of the History & Physical I have noted the following changes of clinical significance: No changes noted
[2017-08-25] MEDS ORDERED: BUPIVACAINE/EPINEPHRINE 0.5% MPF 1:200,000 30 ML VIAL ONE (09:09)
[2017-08-25] MEDS ORDERED: EpHEDrine SULFATE INJ 50 MG/ML AMP ONE ×2 (09:30→09:54)
[2017-08-25] MEDS ORDERED: DEXAMETHASONE SOD INJ 4 MG/ML VIAL ONE (09:30)
[2017-08-25] MEDS ORDERED: ONDANSETRON INJ 2 MG/ML 2 ML VIAL ONE (09:30)
[2017-08-25] MEDS ORDERED: EpHEDrine SULFATE INJ 50 MG/ML AMP IV PRN (09:45)
[2017-08-25] MEDS ORDERED: FENTANYL CITRATE INJ 50 MCG/1 ML 2 ML VIAL IV PRN (09:45)
[2017-08-25] MEDS ORDERED: HYDROmorphone INJ 1 MG/ML SYR IV PRN (09:45)
[2017-08-25] MEDS ORDERED: ONDANSETRON INJ 2 MG/ML 2 ML VIAL IV PRN ×2 (09:45→10:45)
[2017-08-25] MEDS ORDERED: ATROPINE SULFATE 0.1 MG/ML 5ML SYR IV PRN (09:45)
[2017-08-25] MEDS ORDERED: GLYCOPYRROLATE INJ 0.2 MG/ML VIAL ONE (09:54)
[2017-08-25] MEDS ORDERED: EpHEDrine SULFATE 50MG/5ML SYR ONE (09:54)
[2017-08-25] MEDS ORDERED: ESMOLOL HCL 10 MG/ML 10 ML VIAL ONE (10:18)
[2017-08-25] MEDS ORDERED: SODIUM CHLORIDE 0.9% 1000ML 1,000 ML IV SCH (10:36)
[2017-08-25] MEDS ORDERED: HYDR-5688 PO (10:36)
--- NOTE | 2017-08-25 10:38 | Discharge Instructions ---
Discharge Instructions Date of Service Aug 25, 2017. Visit Reason for Visit: Left Inguinal Hernia Discharge Discharge Diagnosis / Problem: Left Inguinal Hernia Discharge Goals Goal(s): Decrease discomfort, Improve function Activity Recommendations Activity Limitations: as noted below Lifting Limitations: no more than 10 pounds, until after follow-up appointment Exercise/Sports Limitations: until after follow-up appointment Shower/Bathe: tomorrow Driving or Machine Use: resume 3 days after discharge (Do not drive while using narcotic pain medication) Anesthesia . Post Anesthesia Instructions: If you have had General Anesthesia or IV Sedation: * Do not drive today. * Resume driving when surgeon permits. * Do not make important decisions or sign legal documents today. * Call surgeon for: 1. Temperature elevations greater than 101 degrees F. 2. Uncontrollable pain. 3. Excessive bleeding. 4. Persistent nausea and vomiting. 5. Medication intolerance (nausea, vomiting or rash). * For nausea and vomiting use only clear liquids such as: tea, soda, bouillon until nausea subsides, then gradually increase diet as tolerated. * If you have any concerns or questions, call your surgeon's office. If physician is unavailable and it is an emergency, call 911 or go to the nearest emergency room. . Instructions / Follow-Up Instructions / Follow-Up You have surgical glue covering your incision. Please allow this to fall off on its own. You have been given [place] as needed for pain relief. You may alternate this with your Ibuprofen for better relief as well. You may apply ice as needed to your incision site to reduce inflammation and provide pain relief - 20 minutes on, 20 minutes off. Please follow up with Dr. Darling in 2 weeks. Please contact our office at [phone] to schedule an appointment if you have not done so already. Please contact our office with any questions or concerns. [facility]. [address] [place] [address]. Diet Recommendations Recommended Home Diet: no limitations, resume previous diet Procedures Procedures Performed: Open Left Inguinal Hernia Repair with Mesh Pending Studies Studies pending at discharge: no Medical Emergencies . Who to Call and When: Medical Emergencies: If at any time you feel your situation is an emergency, please call 911 immediately. . Non-Emergent Contact Non-Emergency issues call your: Primary Care Provider, Surgeon Call Non-Emergent contact if: you have a fever, temperature is above 101.5, your pain is not controlled, your pain is worsening, wound has increased drainage, wound has increased redness . . "Provider Documentation" section prepared by Daljit Amaya. . [place] Drug Monitoring Program Search Results: patient reviewed within database, no issues identified
[2017-08-25] MEDS ORDERED: HYDROCODONE/ACETAMOPHEN 5/325MG TAB PO PRN ×2 (10:45)
--- NOTE | 2017-08-25 10:45 | [facility] Operative Report ---
Operative Report Operative Date Aug 25, 2017. Pre-Operative Diagnosis Left Inguinal Hernia Post-Operative Diagnosis same Procedure(s) Performed Open Left Inguinal Hernia Repair with Mesh Surgeon Dr. Darling Vamp Creaser Surgeon(s) Daljit Krause PA-C Estimated Blood Loss 10 ML Findings large/chronic indirect inguinal hernia Anesthesia LMA Complication(s) None Disposition Recovery Room / PACU Description of Procedure After informed consent was obtained the patient was taken to the operating room and placed in the supine position. After successful placement of the laryngeal mask airway the left groin was shaved and sterilely prepped and draped in usual fashion. We began with a left inguinal incision with a 15 blade scalpel. This was carried down through the soft tissue using electrocautery. A wheatlander retractor was used to help exposure. After skeletonizing the external oblique aponeurosis we made a small incision in it with a fresh blade. Metzenbaum scissors were then used to extend this distally through the external ring as well as for several centimeters proximally. Once in the inguinal canal we were able to gently elevate the cord and cord structures bluntly using a finger to come around teasing them off the pubic bone. A Cyrus drain was placed around them to help with exposure. There was no evidence of a direct hernia. We began examining the cord and cord structures and readily found a thick chronic hernia sac. We are able to use blunt dissection and small amounts electrocautery to tease this off of the surrounding tissues. Once we had it dissected back to its neck we easily dunked it back into the abdominal cavity where it stayed without any difficulty. We then used a piece of polypropylene mesh as an onlay. It was secured distally to Anil's ligament laterally along the shelving portion of Poupart ligament and medially along the midline musculature. The "arms" were wrapped around behind the cord and cord structures and again secured underlying muscle. 0 Ethibond was used for all the suturing. The mesh laid nice and tension free without impinging on the cord. We thoroughly irrigated the wound. I injected some Marcaine around the periphery of the mesh for postoperative analgesia. There was adequate hemostasis at the end of the procedure. I closed the external oblique aponeurosis with 2-0 Vicryl in a running fashion. Soft tissue was irrigated and closed using 3-0 Vicryl for the deep layers and 4-0 Monocryl for the skin. Some additional Marcaine was injected around the skin soft tissue and glue used as a dressing. The patient was awaken extubated and transferred recovery in stable condition I attest to the content of the Intraoperative Record and any orders documented therein. Any exceptions are noted below.
--- NOTE | 2017-08-25 11:05 | Anesthesiology Progress Note ---
Anesthesia Post Op Note Date & Time Aug 25, 2017 at 11:05 Vital Signs Pain Intensity: 2 Vital Signs Past 12 Hours Date Time Temp Pulse Resp B/P (MAP) Pulse Ox O2 Delivery O2 Flow Rate FiO2 08/25/17 10:55 96 15 107/60 98 Oxymask 10 08/25/17 10:45 105 13 125/72 100 Oxymask 10 08/25/17 10:35 36.4 100 18 131/73 100 Oxymask 10 Notes Mental Status: alert / awake / arousable, participated in evaluation Pt Amnestic to Procedure: Yes Nausea / Vomiting: adequately controlled Pain: adequately controlled Airway Patency, RR, SpO2: stable & adequate BP & HR: stable & adequate Hydration State: stable & adequate Anesthetic Complications: no major complications apparent
[2017-08-25 11:20] VITALS: BP 114/71; PULSE 89; TEMP 36.4; O2SAT 100
[2017-08-25 11:50] VITALS: BP 122/73; PULSE 88; O2SAT 99
[2017-08-25 12:20] VITALS: BP 115/72; PULSE 86; TEMP 36.5; O2SAT 99
[2017-08-25] MEDS ORDERED: HYDROCODONE/ACETAMOPHEN 5/325MG TAB ONE (12:29)
== END 2017-08-25 13:35 | disposition home or self-care (01) ==
LOC: C.ACU 07:34
PROVIDERS: ATTEND Surgery
DX: K40.90 Unilateral inguinal hernia, without obstruction or gangrene, not specified as recurrent (principal); I10 Essential (primary) hypertension; F43.20 Adjustment disorder, unspecified; M25.50 Pain in unspecified joint; K22.70 Barrett's esophagus without dysplasia; B18.2 Chronic viral hepatitis C; N40.0 Benign prostatic hyperplasia without lower urinary tract symptoms; K74.60 Unspecified cirrhosis of liver; I87.2 Venous insufficiency (chronic) (peripheral); Z87.891 Personal history of nicotine dependence; Z12.5 Encounter for screening for malignant neoplasm of prostate; Z80.0 Family history of malignant neoplasm of digestive organs

== ENCOUNTER 2017-10-28 14:57 | Emergency (ER) | payer OTHER ==
[~2017-10-28] VITALS: Ht 172.7 cm; Wt 71.0 kg
[~2017-10-28 14:57] MED LIST changes: -CEPH500C PO
[2017-10-28 15:03] VITALS: TEMP 36.8; Ht 172.7 cm; Wt 71.0 kg
--- NOTE | 2017-10-28 18:04 | EMERGENCY ROOM VISIT NOTE ---
History Report prepared by Terry: Zeny Patterson Under the Supervision of: Dr. Andrea Phillips M.D. First contact with patient: 17:53 Chief Complaint: LEG PAIN,LEG INJURY Stated Complaint: LEFT LEG BELOW KNEE History of Present Illness The patient is a 67 year old male who presents to the Emergency Room with complaints of intermittent left leg pain beginning three weeks ago. He has an associated cough and he denies any fevers or chills. He reports he has been scratching it to alleviate the pain. He has a history of Lyme arthritis and was diagnosed 4-5 years ago. He reports he was never treated but last had antibiotics about [address] Leon, his PCP, who tested him for Lyme and he was positive and newly infected. He also notes he has a hernia on his left lower side but it is nothing new. Review of patients outpatient labs are the following: CBC 3.11>11.7/35.4/<12 BMP: 138/4.4 109/24 27/1.35<77 Source of History: patient Onset: three weeks ago Position: leg (left) Timing: intermittent Modifying Factors (Relieving): other (scratching) Associated Symptoms: + cough, No fevers, No chills Review of Systems See HPI for pertinent positives and negatives. A total of ten systems were reviewed and were otherwise negative. Past Medical & Surgical Medical Problems: (1) Nephrolithiasis Family History Diabetes mellitus Hypertension Hypertension Kidney disease Kidney stones Lung disease Social History Smoking Status: Former Smoker Alcohol Use: none Drug Use: none Marital Status: single Housing Status: lives alone Occupation Status: retired Current/Historical Medications Scheduled Cephalexin Monohydrate (Keflex), 500 MG PO QID Ibuprofen Tab (Advil), 200 MG PO PRN Metoprolol Succinate (Metoprolol Succinate ER), 50 MG PO QAM Pantoprazole (Protonix), 40 MG PO QAM Sertraline (Zoloft), 50 MG PO HS Tamsulosin Hcl (Flomax), 0.4 MG PO HS Allergies Coded Allergies: Bacitracin (Verified Allergy, Unknown, PT DENIES-ON MEDICAL RECORD, 10/28/17 ) Neomycin (Verified Allergy, Unknown, PT DENIES-ON MEDICAL RECORD, 10/28/17) Polymyxin B (Verified Allergy, Unknown, PT DENIES-ON MEDICAL RECORD, ) Physical Exam Vital Signs Date Time Temp Pulse Resp B/P (MAP) Pulse Ox O2 Delivery O2 Flow Rate FiO2 10/28/17 19:45 57 16 141/80 100 10/28/17 19:06 53 16 145/82 99 Room Air 10/28/17 18:03 54 17 126/72 100 Room Air 10/28/17 15:03 36.8 59 20 111/71 98 Room Air Physical Exam GENERAL: Awake, alert, well-appearing, in no distress HENT: Normocephalic, atraumatic. Oropharynx unremarkable. Dry mucous membranes EYES: Normal conjunctiva. Sclera non-icteric. NECK: Supple. No nuchal rigidity. FROM. No JVD. RESPIRATORY: Clear to auscultation. CARDIAC: Regular rate, normal rhythm. Extremities warm and well perfused. Pulses equal. ABDOMEN: Soft, non-distended. No tenderness to palpation. No rebound or guarding. No masses. RECTAL: Deferred. MUSCULOSKELETAL: Chest examination reveals no tenderness. The back is symmetrical on inspection without obvious abnormality. There is no CVA tenderness to palpation. No joint edema. LOWER EXTREMITIES: Calves are equal size bilaterally and non-tender. Left anterior lower leg with 10 cm area and erythema and warmth with excoriations. Mild edema distally. No proximal edema or thigh ttp. NEURO: Normal sensorium. No sensory or motor deficits noted. SKIN: No rash or jaundice noted. Medical Decision & Procedures ER Provider Diagnostic Interpretation: Radiology results as stated below per my review and radiologist interpretation: L TIBIA/FIBULA 2 VIEWS ROUTINE CLINICAL HISTORY: cellulitis, evaluate for osseus involvement infection COMPARISON: None. DISCUSSION: The bones and joint spaces appear intact. There is no evidence of fracture, dislocation or bony disease. Mild soft tissue edematous change. No evidence for a lytic or blastic process. IMPRESSION: Mild soft tissue edema. No acute bony abnormality. The above report was generated using voice recognition software. It may contain grammatical, syntax or spelling errors. Electronically signed by: Elie Bai M.D. 10/28/2017 6:55 PM Dictated Date/Time: 10/28/2017 6:54 PM Medications Administered Medications (Trade) Dose Ordered Sig/Vicki Route Start Time Stop Time Status Last Admin Dose Admin Acetaminophen (Tylenol Tab) 650 mg NOW STAT PO 10/28/17 18:08 10/28/17 18:11 DC 10/28/17 18:15 650 MG Cephalexin Monohydrate (Keflex Cap) 500 mg NOW ONCE PO 10/28/17 18:15 10/28/17 18:16 DC 10/28/17 18:14 500 MG ED Course 1754: The patient was evaluated in room B12. A complete history and physical exam was performed. 1909: I reevaluated the patient. Discussed results and discharge instructions: He verbalized understanding and agreement. The patient is ready for discharge. Medical Decision I reviewed the patient's past medical history, medications, and the nursing notes as described above. Differential diagnosis: Etiologies such as cellulitis, abscess, MRSA infection, DVT, necrotizing fasciitis, dermatitis, drug eruption, as well as others were entertained.. The patient is a 67 y/o gentleman who presents to the emergency department with with pain and rash to left anterior lower leg per HPI. On arrival the patient is in NAD, AFVSS. left lower anterior leg with area of erythema, warmth, and excoriations. No crepitus. No induration or fluctuance. No proximal edema or calf/thigh ttp, thus DVT not likely. Exam most c/w cellulitis. Xray negative for osseous involvement. Plan for keflex. Cr. 1.3 on outpatient labs slightly increased from recent. WBC 3 similar to prior labs. Patient instructed to increase hydration and f/u with pcp for repeat lab draw. Findings and plan for follow-up reviewed with patient. Patient agreeable and d/c'd per discharge instructions. Medication Reconcilliation Current Medication List: was personally reviewed by me Blood Pressure Screening Patient's blood pressure: Normal blood pressure Blood pressure disposition: Did not require urgent referral Impression Primary Impression: Cellulitis of left leg Additional Impressions: Elevated serum creatinine Dehydration Scribe Attestation The scribe's documentation has been prepared under my direction and personally reviewed by me in its entirety. I confirm that the note above accurately reflects all work, treatment, procedures, and medical decision making performed by me. Departure Information Dispostion Home / Self-Care Prescriptions Cephalexin Monohydrate (Keflex) 500 Mg Cap 500 MG PO QID for 7 Days, #28 CAP Prov: Andrea Phillips M.D. 10/28/17 Referrals Xavier Leon M.D. (PCP) Forms HOME CARE DOCUMENTATION FORM, IMPORTANT VISIT INFORMATION Patient Instructions Acute Kidney Injury Dc, Creatinine Blood, ED Dehydration, ED Infec Skin Cellulitis, My [facility] Additional Instructions Please follow up with your primary care physician in the next 1-3 days for re- evaluation and to repeat your kidney function tests. You were found to have a skin infection on your leg. Review of your outpatient labs show that you have some dehydration and mildly impaired kidney function. Otherwise, your exam and xray did not show signs of an emergent condition at this time. Acetaminophen for pain and fevers as needed. Keflex as directed. Drink plenty of fluids to ensure hydration. Return to the emergency department for worsening symptoms as described in the accompanying instructions. Problem Qualifiers
[2017-10-28] MEDS ORDERED: ACETAMINOPHEN 325 MG TAB PO STA (18:08)
[2017-10-28] MEDS ORDERED: CEPHALEXIN MONOHYDRATE 250 MG CAP PO ONE (18:15)
--- NOTE | 2017-10-28 18:56 | DIAGNOSTIC IMAGING REPORT ---
L TIBIA/FIBULA 2 VIEWS ROUTINE CLINICAL HISTORY: cellulitis, evaluate for osseus involvement infection COMPARISON: None. DISCUSSION: The bones and joint spaces appear intact. There is no evidence of fracture, dislocation or bony disease. Mild soft tissue edematous change. No evidence for a lytic or blastic process. IMPRESSION: Mild soft tissue edema. No acute bony abnormality. The above report was generated using voice recognition software. It may contain grammatical, syntax or spelling errors. Electronically signed by: Elie Bai M.D. 10/28/2017 6:55 PM Dictated Date/Time: 10/28/2017 6:54 PM
[2017-10-28] MEDS ORDERED: CEPH500C PO (19:07)
[2017-10-28 19:45] VITALS: BP 141/80; PULSE 57; O2SAT 100
== END 2017-10-28 19:45 | disposition home or self-care (01) ==
LOC: C.EDB 14:59
DX: R21 Rash and other nonspecific skin eruption (principal); R60.0 Localized edema; R05 Cough; R79.89 Other specified abnormal findings of blood chemistry; A69.23 Arthritis due to Lyme disease; Z87.891 Personal history of nicotine dependence; Z88.1 Allergy status to other antibiotic agents; Z83.3 Family history of diabetes mellitus; Z82.49 Family history of ischemic heart disease and other diseases of the circulatory system; Z84.1 Family history of disorders of kidney and ureter; Z83.6 Family history of other diseases of the respiratory system

== ENCOUNTER → 2017-10-28 | Outpatient (CLI) | payer OTHER ==
[~2017-10-28] MED LIST changes: -CEFAZOLIN 2000MG IV PUSH 10 ML IV SCH; +CEPH500C PO; -LACTATED RINGER'S 1000ML 1,000 ML IV SCH; -LACTATED RINGER'S 1000ML IV SCH
[2017-10-28 16:49] LABS: BASO % 0.6 %; BASO ABS # 0.02 K/uL (0-0.2); EOS % 3.9 %; EOS ABS # 0.12 K/uL (0-0.5); HEMATOCRIT 35.4 % (42-52); HEMOGLOBIN 11.7 g/dL (14.0-18.0); IG# 0.01 K/uL (0.00-0.02); LYMPH % 41.5 %; LYMPH ABS # 1.29 K/uL (1.2-3.4); MEAN CORPUSCULAR HEMOGLOBIN 28.7 pg (25-34); MEAN CORPUSCULAR HGB CONC 33.1 g/dl (32-36); MEAN PLATELET VOLUME 10.1 fL (7.4-10.4); MONO % 14.1 %; MONO ABS # 0.44 K/uL (0.11-0.59); NEUT % 39.6 %; NEUT ABS # 1.23 K/uL (1.4-6.5); PLATELET COUNT 112 K/uL (130-400); RED CELL DISTRIBUTION WIDTH CV 16.2 % (11.5-14.5); RED CELL DISTRIBUTION WIDTH SD 51.9 fL (36.4-46.3); WHITE BLOOD COUNT 3.11 K/uL (4.8-10.8)
[2017-10-28 17:11] LABS: ALBUMIN 3.7 gm/dl (3.4-5.0); ALT/SGPT 44 U/L (12-78); BLOOD UREA NITROGEN 27 mg/dl (7-18); CALCIUM 9.1 mg/dl (8.5-10.1); CARBON DIOXIDE 24 mmol/L (21-32); CREATININE 1.35 mg/dl (0.60-1.40); GLUCOSE 77 mg/dl (70-99); POTASSIUM 4.4 mmol/L (3.5-5.1); SODIUM 138 mmol/L (136-145); TRANSFERRIN 304 mg/dl (200-360)
[2017-10-28 17:14] LABS: ALKALINE PHOSPHATASE 67 U/L (45-117); AST/SGOT 40 U/L (15-37); TOTAL PROTEIN 6.8 gm/dl (6.4-8.2)
== END | disposition home or self-care (01) ==
LOC: C.LABBC 14:13
PROVIDERS: ATTEND Internal Medicine
DX: D64.9 Anemia, unspecified (principal); K74.0 Hepatic fibrosis; M25.50 Pain in unspecified joint

== ENCOUNTER → 2017-11-11 | Outpatient (CLI) | payer OTHER ==
[~2017-11-11] MED LIST changes: -AMLO-110 PO
[2017-11-11 13:33] LABS: BASO % 0.3 %; BASO ABS # 0.01 K/uL (0-0.2); EOS % 4.5 %; EOS ABS # 0.13 K/uL (0-0.5); HEMATOCRIT 37.1 % (42-52); HEMOGLOBIN 12.4 g/dL (14.0-18.0); LYMPH % 31.4 %; MEAN CELL VOLUME 87.7 fL (80-100); MEAN CORPUSCULAR HEMOGLOBIN 29.3 pg (25-34); MEAN CORPUSCULAR HGB CONC 33.4 g/dl (32-36); MEAN PLATELET VOLUME 9.7 fL (7.4-10.4); MONO % 11.1 %; MONO ABS # 0.32 K/uL (0.11-0.59); NEUT % 52.7 %; NEUT ABS # 1.51 K/uL (1.4-6.5); PLATELET COUNT 126 K/uL (130-400); RED CELL DISTRIBUTION WIDTH CV 16.3 % (11.5-14.5); RED CELL DISTRIBUTION WIDTH SD 52.3 fL (36.4-46.3); WHITE BLOOD COUNT 2.87 K/uL (4.8-10.8)
[2017-11-11 13:51] LABS: BLOOD UREA NITROGEN 31 mg/dl (7-18); CALCIUM 9.3 mg/dl (8.5-10.1); CARBON DIOXIDE 33 mmol/L (21-32); CREATININE 1.06 mg/dl (0.60-1.40); GLUCOSE 66 mg/dl (70-99); POTASSIUM 4.5 mmol/L (3.5-5.1); SODIUM 140 mmol/L (136-145)
== END | disposition home or self-care (01) ==
LOC: C.LABBC 10:51
PROVIDERS: ATTEND Nurse Practitioner Adult Health
DX: L03.90 Cellulitis, unspecified (principal); N17.9 Acute kidney failure, unspecified

== ENCOUNTER → 2017-12-05 | Outpatient (CLI) | payer OTHER ==
--- NOTE | 2017-12-05 13:44 | DIAGNOSTIC IMAGING REPORT ---
L VENOUS DOPP LOWER EXT UNILAT CLINICAL HISTORY: 67 years-old Male presenting with M79.89 Left leg swelling. TECHNIQUE: Real-time grayscale and color and spectral Doppler ultrasound imaging of the veins of the left lower extremity was performed. Compression and augmentation were also utilized. COMPARISON: 01/15/2017. FINDINGS: Left: Common femoral vein: Patent. Greater saphenous vein: Patent. Deep femoral vein: Patent. Femoral vein: Patent. Popliteal vein: Patent. Calf veins: Patent. Other: None. IMPRESSION: No evidence of deep venous thrombosis. Electronically signed by: Jeff Higginbotham M.D. 12/05/2017 1:43 PM Dictated Date/Time: 12/05/2017 1:42 PM
== END | disposition home or self-care (01) ==
LOC: C.ULTR 13:02
PROVIDERS: ATTEND Internal Medicine
DX: M79.89 Other specified soft tissue disorders (principal)

== ENCOUNTER → 2017-12-14 | Outpatient (CLI) | payer OTHER ==
[2017-12-14 14:17] LABS: BASO % 1.1 %; BASO ABS # 0.03 K/uL (0-0.2); EOS % 4.7 %; EOS ABS # 0.13 K/uL (0-0.5); LYMPH % 43.1 %; LYMPH ABS # 1.19 K/uL (1.2-3.4); MEAN CELL VOLUME 88.9 fL (80-100); MEAN CORPUSCULAR HEMOGLOBIN 29.6 pg (25-34); MEAN CORPUSCULAR HGB CONC 33.3 g/dl (32-36); MONO ABS # 0.36 K/uL (0.11-0.59); NEUT % 38.1 %; NEUT ABS # 1.05 K/uL (1.4-6.5); PLATELET COUNT 112 K/uL (130-400); RED CELL DISTRIBUTION WIDTH CV 15.9 % (11.5-14.5); RED CELL DISTRIBUTION WIDTH SD 51.9 fL (36.4-46.3); WHITE BLOOD COUNT 2.76 K/uL (4.8-10.8)
[2017-12-14 17:16] LABS: BLOOD UREA NITROGEN 20 mg/dl (7-18); CALCIUM 9.1 mg/dl (8.5-10.1); CARBON DIOXIDE 27 mmol/L (21-32); CREATININE 0.93 mg/dl (0.60-1.40); GLUCOSE 79 mg/dl (70-99); POTASSIUM 4.4 mmol/L (3.5-5.1); SODIUM 139 mmol/L (136-145)
== END | disposition home or self-care (01) ==
LOC: C.LABBC 11:15
PROVIDERS: ATTEND Nurse Practitioner Adult Health
DX: D72.819 Decreased white blood cell count, unspecified (principal); S81.802A Unspecified open wound, left lower leg, initial encounter; X58.XXXA Exposure to other specified factors, initial encounter; N17.9 Acute kidney failure, unspecified

== ENCOUNTER 2025-01-24 16:13 | Observation (INO) ==
--- NOTE | 2025-01-24 17:02 | Emergency Department Note ---
Impression & Plan Atrial fibrillation/flutter, Atrial fibrillation with rapid ventricular response, Elevated troponin ED Provider Note NAME: LILLI DAWKINS AGE: 74 SEX: M : 1950 ARRIVES VIA: Walk-In INFORMANT: Patient ED PROVIDER(S): Andrea Phillips MD CHIEF COMPLAINT: New atrial fibrillation, referred. PLAN: Disposition: Admit MEDICAL DECISION MAKING: The patient is a pleasant 74-year-old gentleman with a past medical history of hypertension, hypothyroidism, GERD who presents to the emergency department via walk-in, referred by his PCP office for new onset atrial fibrillation with RVR. Patient reports he had an appointment today for evaluation of ringing in his ears that has been ongoing for the past week or so. Otherwise he reports feeling "different" but cannot specify. He denies chest pain, shortness of breath, heart racing or palpitations. He denies dizziness or room spinning. He admits he has not been eating or drinking well. He does allude to having a depressed mood related to the of loved ones recently. On evaluation the patient is no acute distress, afebrile with heart rate in the 130s and atrial fibrillation/atrial flutter and vital signs otherwise stable. Appears clinically dry. Exam is otherwise unremarkable. EKG demonstrates atrial fibrillation/flutter with RVR with ST abnormalities without overt ST elevation. CXR with cardiomegaly and otherwise negative for acute cardiopulmonary process per my personal preliminary review/interpretation. WBC, H/H and platelets within normal limits. Chemistry without metabolic acidosis. Initial high-sensitivity troponin 52.7 with repeat 55.8, nonspecific. TSH within normal limits. Heart somewhat improved with IV hydration to the 110s-120s. Patient was given 5 mg of IV Lopressor for additional rate control. Given patient's new onset atrial fibrillation with RVR and elevated troponin with ST abnormalities patient does agree with plan for admission for further management. Case was discussed with Dr. Escobedo, [facility] hospitalist, who will evaluate the patient for admission. We agreed to proceed with heparin at this time given [id number] and ST abnormalities. Aspirin also administered out of caution. Further management per admitting team. Triage Nursing notes reviewed and agree them. Prior/external medical records reviewed Vital Signs: reviewed Differential diagnosis: Premature contractions, electrolyte abnormality, cardiac dysrhythmia, thyroid dysfunction, pulmonary embolism, infection, gastrointestinal, as well as other pathologies. ER treatment provided: See below. Diagnostics interpreted by me: ECG: Atrial fibrillation/flutter with RVR with variable AV block, 123 bpm, no ectopy, incomplete right bundle branch block, ST and T wave abnormality, no overt ST elevation. Cardiac Monitoring: An order for continuous cardiac monitoring was placed and demonstrated atrial fibrillation/flutter with RVR, variable AV block, 123 bpm. Laboratory studies: See below Imaging studies: See below Consultation(s): Case was discussed with Dr. Escobedo, [facility] hospitalist, who will evaluate the patient for admission. HPI: Per MDM. ROS: See above HPI for pertinent positives & negatives. A total of 10 systems reviewed and were otherwise negative. VITALS:See Below PHYSICAL EXAMINATION: GENERAL: Awake, alert, in no distress HENT: Normocephalic, atraumatic. Oropharynx with dry mucous membranes and otherwise unremarkable. EYES: Normal conjunctiva. Sclera non-icteric. EOMI. No nystamgus. PEARRL. NECK: Supple. No nuchal rigidity. FROM. No JVD. RESPIRATORY: Clear to auscultation. CARDIAC: Tachycardic rate, irregular rhythm. Extremities warm and well perfused. Pulses equal. ABDOMEN: Soft, non-distended. No tenderness to palpation. No rebound or guarding. No masses. MUSCULOSKELETAL: Chest examination reveals no tenderness. The back is symmetrical on inspection without obvious abnormality. There is no CVA tenderness to palpation. No joint edema. LOWER EXTREMITIES: Calves are equal size bilaterally and non-tender. No edema. No discoloration. NEURO: Normal sensorium. No sensory or motor deficits noted. SKIN: No rash or jaundice noted. ED COURSE: Critical Care: I have personally spent greater than 35 minutes of critical care time in the direct management of this patient. This includes bedside care, interpretation of diagnostic studies, and testing, discussion with consultants, patient, and family members, and other required patient management activities. This 35 minutes is in excess of all separately billable procedures. Andrea Phillips MD Past Med/Surg History Problem List (Updated 01/25/25 @ 04:15 by nAdrea Phillips MD) Elevated troponin (Acute) Atrial fibrillation with rapid ventricular response (Acute) Atrial fibrillation/flutter (Acute) Afib Fatigue Change in hearing Mediastinal lymphadenopathy History of pneumonia Shortness of breath Current use of proton pump inhibitor Gomes esophagus Nephrolithiasis (Chronic) Low back pain (Acute) Pyelonephritis (Acute) Right shoulder injury (Acute) Vasculitis (Acute) Gomes esophagus Adjustment disorder (Acute) Anemia (Acute) Arterial insufficiency of lower extremity (Acute) Arthralgia (Acute) Chronic viral hepatitis C (Acute) Disc degeneration, lumbar (Acute) Enlarged prostate without lower urinary tract symptoms (luts) (Acute) Essential hypertriglyceridemia (Acute) Hepatic fibrosis (Acute) Hypertension (Acute) Leukopenia (Acute) Spondylisthesis (Acute) Venous insufficiency (Acute) Venous stasis of lower extremity (Acute) Insomnia Elbow pain Hypothyroidism Medical History Encounter for pre-operative examination History of COVID-19 Lyme disease Diverticulosis Osteoarthritis Spinal stenosis Degenerative disc disease Chronic back pain Kidney stones BPH (benign prostatic hyperplasia) Hepatitis C Barretts esophagus GERD (gastroesophageal reflux disease) Insomnia Hypertension Back pain, acute Surgical History History of root canal procedure History of open reduction and internal fixation (ORIF) procedure History of left inguinal hernia repair History of colonoscopy History of esophagogastroduodenoscopy (EGD) History of wisdom tooth extraction Family History Aunt Family history of diabetes mellitus Uncle Family history of diabetes mellitus Mother Myocardial infarction Father Myocardial infarction Other No family history of adverse response to anesthesia Denies family history of Ovarian cancer Prostate cancer Breast cancer Colorectal cancer Social History Smoking Status: Never smoker Tobacco Type: Declines Age Started Using Tobacco: 16; Age Quit Using Tobacco: 38; packs per day: 1; Second Hand Exposure: No; Do You Dip or Chew Tobacco: No; Tobacco Cessation Education Requested by Patient: No Hx Alcohol Use: No Hx Substance Use: No Preferred Language: Norwegian Communication Ability: Effective Graphic Illustrator Required: No Beliefs That Will Affect Care: None marital status: Single Current Living Situation: Alone current occupational status: employed current occupation: [employer] - Self employed Other Information That Helps Us Care for You: No Feels Safe at Home: Yes Safety Concerns: Feels Safe At This Time Childhood Exposure to Second-Hand Smoke: Yes Dental Care, Regularly: Yes Physical Activity Frequency: Does not Exercise Seatbelt Use: always Sunscreen Use: Yes Assistive Devices: None Allergies Allergies Allergy/AdvReac Type Severity Reaction Status Date / Time No Known Allergies Allergy Verified 01/24/25 15:03 Home Meds Previous Rx's Medication Instructions Recorded olmesartan 40 mg tablet 40 mg PO DAILY #90 tabs 06/01/24 sildenafil 50 mg tablet 50 mg PO DAILY PRN sexual activity 09/24/24 #10 tabs levothyroxine 75 mcg tablet 75 mcg PO QAM #30 tabs 12/05/24 pantoprazole 40 mg tablet,delayed 40 mg PO BID #180 tabs 12/14/24 release sertraline 100 mg tablet 100 mg PO DAILY #30 tabs 01/17/25 Results & Data (ED) Vital Signs Vital Signs - 24 hr 01/24/25 16:24 01/24/25 16:59 01/24/25 17:00 Temperature 36.5 C Temperature Source Temporal Artery Scan Pulse Rate 89 108 H Pulse Rate [Finger] Pulse Rhythm [Finger] Pulse Strength [Finger] Respiratory Rate 14 Respiratory Effort / Characteristics Non-Labored Spontaneous Respiratory Depth Normal Blood Pressure 125/69 Blood Pressure [Right Arm] Blood Pressure Mean 87 Blood Pressure Mean [Right Arm] Pulse Oximetry 97 97 Oxygen Delivery Method Room Air Room Air Sepsis Recent Fever Within 48 Hours No Sepsis New/Unexplained Change in Mental Status No Sepsis Action Taken by Nursing No Action Required 01/24/25 17:05 01/24/25 18:39 01/24/25 19:06 Temperature Temperature Source Pulse Rate 119 H Pulse Rate [Finger] 121 H 90 Pulse Rhythm [Finger] Regular Pulse Strength [Finger] Normal Respiratory Rate 16 16 Respiratory Effort / Characteristics Non-Labored Spontaneous Non-Labored Respiratory Depth Normal Normal Blood Pressure 131/91 Blood Pressure [Right Arm] 130/50 L Blood Pressure Mean Blood Pressure Mean [Right Arm] 76 Pulse Oximetry 97 96 Oxygen Delivery Method Room Air Sepsis Recent Fever Within 48 Hours Sepsis New/Unexplained Change in Mental Status Sepsis Action Taken by Nursing Laboratory Data Attestation: I reviewed the patient's lab results. 01/25/25 03:24 01/25/25 03:24 Lab Results 01/24/25 01/24/25 Range/Units 16:50 18:40 WBC 6.72 (4.8-10.8) K/ul RBC 5.52 (4.70-6.10) M/uL Hgb 16.8 (14.0-18.0) g/dl Hct 48.1 (42.0-52.0) % MCV 87.1 (80.0-100.0) fL MCH 30.4 (25.0-34.0) pg MCHC 34.9 (32.0-36.0) g/dL RDW Std Deviation 46.5 H (36.4-46.3) fL RDW Coeff of Heather 14.4 (11.5-14.5) % Plt Count 182 (130-400) K/uL MPV 9.7 (9.4-12.4) fL Immature Gran % (Auto) 0.1 % Neut % (Auto) 56.9 % Lymph % (Auto) 27.1 % Platte % (Auto) 12.5 % Eos % (Auto) 2.5 % Baso % (Auto) 0.9 % Neut # (Auto) 3.82 (1.40-6.50) K/uL Lymph # (Auto) 1.82 (1.20-3.40) K/uL Platte # (Auto) 0.84 H (0.11-0.59) K/uL Eos # (Auto) 0.17 (0.00-0.50) K/uL Baso # (Auto) 0.06 (0.00-0.20) K/uL Immature Gran # (Auto) 0.01 (0.01-0.20) K/uL PT 11.6 (9.0-12.0) Seconds INR 1.1 (0.9-1.1) APTT 25 (21-31) Seconds PTT Ratio 0.9 Sodium 138 (136-145) mmol/L Potassium 4.4 (3.5-5.1) mmol/L Chloride 106 (98-107) mmol/L Carbon Dioxide 25 (21-32) mmol/L Anion Gap 7 (3-11) BUN 27 H (6-23) mg/dl Creatinine 1.30 (0.6-1.4) mg/dl Est Cr Clr Drug Dosing 50.0 ml/min eGFR 56.93 BUN/Creatinine Ratio 20.8 H (10-20) Glucose 94 (70-99(Fasting)) mg/dl Calcium 9.8 (8.6-10.3) mg/dl Phosphorus 3.5 (2.5-4.9) mg/dl Magnesium 1.9 (1.7-2.4) mg/dl Total Bilirubin 0.8 (0.2-1.0) mg/dl AST 37 (13-39) U/L ALT 33 (7-52) U/L Alkaline Phosphatase 78 (34-104) U/L Troponin I High Sens 52.7 H* 55.8 H* (0-20) pg/ml Total Protein 7.1 (6.0-8.3) gm/dl Albumin 4.5 (3.4-5.0) gm/dl Globulin 2.6 (2.5-4.0) gm/dl Albumin/Globulin Ratio 1.7 (0.9-2) TSH 1.084 (0.300-4.500) uIu/ml Administered Medications Heparin Sodium/Dextrose (Heparin 23888 Unit/500 Ml D5w) 25,000 units in 500 mls @ 18 mls/hr IV .Q24H LAURA; Protocol Stop: 02/23/25 18:29 Last Titration: 01/25/25 02:36 Dose: 700 units/hr, 14 mls/hr Documented By: ALOK Co-signed By: ABIODUN Titration: 01/25/25 01:34 Dose: 0 units/hr, 0 mls/hr Documented By: ALOK Co-signed By: CALLIE Admin: 01/24/25 18:41 Dose: 900 units/hr, 18 mls/hr Documented By: VITALY Co-signed By: CLAUDIO Pantoprazole Sodium (Pantoprazole 40 Mg Tab) 40 mg PO BID LAURA Stop: 02/23/25 20:59 Last Admin: 01/24/25 21:57 Dose: 40 mg Documented By: ALOK Trazodone HCl (Trazodone Hcl 50 Mg Tab) 50 mg PO HS PRN PRN Reason: sleep Stop: 02/23/25 20:59 Last Admin: 01/24/25 22:00 Dose: 50 mg Documented By: ALOK Discontinued Medications Aspirin (Aspirin Chew 324 Mg) 324 mg PO NOW STA Stop: 01/24/25 18:09 Last Admin: 01/24/25 18:39 Dose: 324 mg Documented By: VITALY Heparin Sodium (Porcine) (Heparin Sod (Porcine) 1000 Unit/Ml) 1 units IV NOW ONE Stop: 01/24/25 18:25 Last Admin: 01/24/25 18:42 Dose: 4,000 units Documented By: VITALY Co-signed By: CLAUDIO Heparin Sodium/Dextrose (Heparin Iv Adult Wt-Based Low-Dose W/ Initial Bolus Protocol) 1 each IV NOW STA; Protocol Stop: 01/24/25 18:09 Last Admin: 01/24/25 18:40 Dose: Not Given Documented By: VITALY Sodium Chloride (Nss) 1,000 mls @ 999 mls/hr IV .Q1H1M ONE Stop: 01/24/25 18:00 Last Infusion: 01/24/25 18:44 Dose: Infused Documented By: Admin: 01/24/25 17:05 Dose: 999 mls/hr Documented By: VITALY Magnesium Sulfate/Dextrose (Magnesium Sulfate / D5w) 1 gm in 100 mls @ 50 mls/hr IV ONE ONE Stop: 01/24/25 20:07 Last Infusion: 01/24/25 20:08 Dose: Infused Documented By: Admin: 01/24/25 18:40 Dose: 50 mls/hr Documented By: VITALY Lactated Ringer's (Lr) 500 mls @ 999 mls/hr IV .Q31M ONE Stop: 01/24/25 22:22 Last Admin: 01/25/25 00:51 Dose: Not Given Documented By: ALOK Metoprolol Tartrate (Metoprolol Tartrate 1 Mg/Ml Vial) 5 mg IV NOW STA Stop: 01/24/25 17:58 Last Admin: 01/24/25 18:39 Dose: 5 mg Documented By: Admin: 01/24/25 18:39 Dose: 5 mg Documented By: VITALY Metoprolol Tartrate (Metoprolol Tartrate 25 Mg Tab) 25 mg PO BID [facility] Stop: 02/23/25 20:59 Last Admin: 01/25/25 01:44 Dose: Not Given Documented By: ALOK Imaging Data Radiologist's Impression: Chest X-Ray 01/24/25 16:28 EXAM: XR chest 1V not portable CLINICAL HISTORY: Chest pain, nonspecific TECHNIQUE: An X-ray image of the chest is obtained in AP projection. COMPARISON: CR 01/18/2023 study. FINDINGS: Pulmonary Parenchyma: veiling of the left lower lung zone (new finding). left sided cardiac configuration with relatively increased cardiothoracic ratio (though hard to be accurately assessed by the virtue of lower left lung zone veiling). serpentine shadow seen superimposed upon the left lower lobe and cardiac shadow (stable finding and likely vascular) prominent bilateral hilar bronchovascular markings with prominent upper lobe vessels. No evidence of pleural effusion or pleural thickening. Heart and Mediastinum: No mediastinal widening or masses. No hilar or mediastinal lymphadenopathy. Bony Thorax: Bony thorax appears intact without fractures or deformities. Soft Tissues: Soft tissues overlying the chest wall are unremarkable. IMPRESSION: 1. New finding of left lower lung zone veiling, likely inflammatory / early pneumonic than being vascular / edema, for further assessment and clinical data correlation. 2. otherwise stable since last study. Electronically signed by Slava Oliveira 01-24-2025 5:52 PM Discharge Plan Visit Data Chief Complaint: Cardiac Assessment Stated Complaint: ABNORMAL EKG ED Provider: Andrea Phillips Discharge Problem: Atrial fibrillation/flutter, Atrial fibrillation with rapid ventricular response, Elevated troponin Patient Disposition: Admitted As Inpatient Condition: Serious Discharge Instructions Interventions: ED Discharge Assessment Last Done: 01/24/25 20:18
[2025-01-24] MEDS: SODIUM CHLORIDE 0.9% 1,000 ML IV ONE (17:05)
[2025-01-24 17:06] LABS: Basophils # (auto) 0.06 K/uL (0.00-0.20); Basophils % (auto) 0.9 %; Eosinophils # (auto) 0.17 K/uL (0.00-0.50); Eosinophils % (auto) 2.5 %; Hematocrit (blood only) 48.1 % (42.0-52.0); Hemoglobin 16.8 g/dl (14.0-18.0); Immature Granulocytes # (auto) 0.01 K/uL (0.01-0.20); Immature Granulocytes % (auto) 0.1 %; Lymphocytes # (auto) 1.82 K/uL (1.20-3.40); Lymphocytes % (auto) 27.1 %; Mean Corpuscular Hemoglobin 30.4 pg (25.0-34.0); Mean Corpuscular Hgb Conc 34.9 g/dL (32.0-36.0); Mean Corpuscular Volume 87.1 fL (80.0-100.0); Mean Platelet Volume 9.7 fL (9.4-12.4); Monocytes # (auto) 0.84 K/uL (0.11-0.59); Monocytes % (auto) 12.5 %; Neutrophils # (auto) 3.82 K/uL (1.40-6.50); Neutrophils % (auto) 56.9 %; Platelet Count 182 K/uL (130-400); RDW Coefficient of Variation 14.4 % (11.5-14.5); RDW Standard Deviation 46.5 fL (36.4-46.3); Red Blood Count 5.52 M/uL (4.70-6.10); White Blood Count 6.72 K/ul (4.8-10.8)
[2025-01-24 17:25] LABS: Albumin Globulin Ratio 1.7 (0.9-2); Albumin Level 4.5 gm/dl (3.4-5.0); BUN Creatinine Ratio 20.8 (10-20); Bilirubin,Total 0.8 mg/dl (0.2-1.0); Calcium 9.8 mg/dl (8.6-10.3); Globulin 2.6 gm/dl (2.5-4.0); Potassium 4.4 mmol/L (3.5-5.1); Total Protein 7.1 gm/dl (6.0-8.3)
[2025-01-24 17:32] LABS: Magnesium 1.9 mg/dl (1.7-2.4); Phosphorus 3.5 mg/dl (2.5-4.9)
[2025-01-24 17:40] LABS: Troponin I High Sensitivity 52.7 pg/ml (0-20)
[2025-01-24 17:42] LABS: INR 1.1 (0.9-1.1); Partial Thromboplastin Ratio 0.9; Partial Thromboplastin Time 25 Seconds (21-31); Prothrombin Time 11.6 Seconds (9.0-12.0)
[2025-01-24 17:48] LABS: Thyroid Stimulating Hormone 1.084 uIu/ml (0.300-4.500)
--- NOTE | 2025-01-24 17:52 | XRay Report ---
EXAM: XR chest 1V not portable CLINICAL HISTORY: Chest pain, nonspecific TECHNIQUE: An X-ray image of the chest is obtained in AP projection. COMPARISON: CR 01/18/2023 study. FINDINGS: Pulmonary Parenchyma: veiling of the left lower lung zone (new finding). left sided cardiac configuration with relatively increased cardiothoracic ratio (though hard to be accurately assessed by the virtue of lower left lung zone veiling). serpentine shadow seen superimposed upon the left lower lobe and cardiac shadow (stable finding and likely vascular) prominent bilateral hilar bronchovascular markings with prominent upper lobe vessels. No evidence of pleural effusion or pleural thickening. Heart and Mediastinum: No mediastinal widening or masses. No hilar or mediastinal lymphadenopathy. Bony Thorax: Bony thorax appears intact without fractures or deformities. Soft Tissues: Soft tissues overlying the chest wall are unremarkable. IMPRESSION: 1. New finding of left lower lung zone veiling, likely inflammatory / early pneumonic than being vascular / edema, for further assessment and clinical data correlation. 2. otherwise stable since last study. Electronically signed by Slava Oliveira 01-24-2025 5:52 PM
--- NOTE | 2025-01-24 18:28 | History & Physical Report ---
Date of Service January 24, 2025 Assessment & Plan (1) Afib: Plan: 74-year-old male who presents for new onset A-fib/a flutter. No chest pain, elevated troponin suspected demand. A-fib/atrial flutter with variable block EKG: Atrial fibrillation versus ?atrial flutter with intermittent 2:1 block. Incomplete right bundle branch block. Rate 123. Borderline anterolateral ST depressions. Baseline EKG normal sinus rhythm On monitor following metoprolol irregular rhythm 99805s more consistent with A-fib Received NSS x 1 L and 5 mg of metoprolol Troponin elevated 52.7. Repeat pending. Trend every 6 Was seen at PCPs office and EKG A-fib/flutter with concern for ST/T wave changes. Was referred urgently to the ER. - Chest pain free on admission, but feels weak. - Due to troponin elevation, ST depressions suspected for demand, and new atrial arrhythmia will heparinize. Troponins trended. Echo pending. Transition to Eliquis at discharge. See discussion of liver mass evaluation as below Normotensive, rates improving after IV metoprolol. Will start on metoprolol twice daily 25 mg. Titrate as tolerated Echo pending. No evidence of rate related failure on admission. Liver mass, former history of treated hep C Suspected to have hepatocellular carcinoma. Pending patient GI evaluation and biopsy which has not yet been scheduled Given new A-fib/a flutter and need for anticoagulation benefit from heparin with pre and postprocedural hold with IR biopsy prior to transitioning to oral anticoagulant. Can assess this based on availability and clinical progression overnight - Was treated by Dr. Yan >10 years ago. Completed a course of antiviral treatment and reportedly have negative hep C viral follow-up testing No transaminitis Gomes Esophogus - Continue PPI Hypothyroidism - TSH normal - Synthroid 100mcg DVT prophylaxis: Anticoagulated with heparin CODE STATUS: Full code Diet: Heart healthy Disposition: PCU due to A-fib with RVR (2) Hepatitis C: (3) Chronic back pain: History of Present Illness Primary Care Provider: Xavier Leon MD Ruchi is a 74-year-old male with a past medical history of Gomes's e sophagus, anxiety/depression/adjustment disorder, lower extremity arterial insufficiency, hypertriglyceridemia, BPH, lower extremity venous stasis, hypothyroidism, hypertension Mr. Hopper reports he was referred in by his PCP. He saw his PCP for tinnitis/ringing in the ears and wanted a hearing evaluation as well While in the PCP office was found to have a fast irriegular heart beat and was told he needed ot go to the ER\\ No ches tpain at any point in the last few weeks or before admission Denies palpitations, but has had 'a little off feeling not quite right' which started 1 week ago. Had one episode of lightheadedness after getting out of bed but did not pass out. No shortness of breath, no dyspnea. Feels more tired and easily fatigued than normal for 'all winter' but also a little worse in the last week or so. "I just dont have energy. Something is just off" No leg swelling No orthopnea No ETOH use Feels fire tired in the morning and has a hard time falling asleep, but no known hx of sleep apnea. Endorses some mild congestion without cough x2-3 weeks but seems to be improving. No other sx, denies other recent illness. No dysuria. Did have Lyme disease 4-5 times in the past. Has been treated with doxycycline x2 complete courses. Last 2 week course of doxycycline this past fall No focal weakness. No numbness/tingling. Tinnitus is chronic, bilateral but seems worse recently. No pulsatile quality. Seems a little worse in the R ear, bu tis bilateral No vision change No hx of GI bleeding or other bleeding. Medical History: Reviewed Medications: Reviewed Surgical History: Reviewed Family history: Reviewed Allergies: Reviewed Social History: Uses nicorette gum. Would like this ordered if possible. No ETOH use. Code Status: Full Code. Surrogate Dm would be Geo Gutierrez, an erisa attorney and friend at [phone] Allergies Allergy/AdvReac Type Severity Reaction Status Date / Time No Known Allergies Allergy Verified 01/24/25 15:03 Home Medications Medication Instructions Recorded Confirmed Type olmesartan 40 mg tablet 40 mg PO DAILY #90 tabs 06/01/24 01/24/25 Rx sildenafil 50 mg tablet 50 mg PO DAILY PRN sexual activity 09/24/24 01/24/25 Rx #10 tabs levothyroxine 75 mcg tablet 75 mcg PO QAM #30 tabs 12/05/24 01/24/25 Rx pantoprazole 40 mg tablet,delayed 40 mg PO BID #180 tabs 12/14/24 01/24/25 Rx release sertraline 100 mg tablet 100 mg PO DAILY #30 tabs 01/17/25 01/24/25 Rx Past Med/Surg History Problem List (Updated 01/24/25 @ 19:08 by Jeff Escobedo MD) Afib Fatigue Change in hearing Mediastinal lymphadenopathy History of pneumonia Shortness of breath Current use of proton pump inhibitor Gomes esophagus Nephrolithiasis (Chronic) Low back pain (Acute) Pyelonephritis (Acute) Right shoulder injury (Acute) Vasculitis (Acute) Gomes esophagus Adjustment disorder (Acute) Anemia (Acute) Arterial insufficiency of lower extremity (Acute) Arthralgia (Acute) Chronic viral hepatitis C (Acute) Disc degeneration, lumbar (Acute) Enlarged prostate without lower urinary tract symptoms (luts) (Acute) Essential hypertriglyceridemia (Acute) Hepatic fibrosis (Acute) Hypertension (Acute) Leukopenia (Acute) Spondylisthesis (Acute) Venous insufficiency (Acute) Venous stasis of lower extremity (Acute) Insomnia Elbow pain Hypothyroidism Medical History Encounter for pre-operative examination History of COVID-19 Lyme disease Diverticulosis Osteoarthritis Spinal stenosis Degenerative disc disease Chronic back pain Kidney stones BPH (benign prostatic hyperplasia) Hepatitis C Barretts esophagus GERD (gastroesophageal reflux disease) Insomnia Hypertension Back pain, acute Surgical History History of root canal procedure History of open reduction and internal fixation (ORIF) procedure History of left inguinal hernia repair History of colonoscopy History of esophagogastroduodenoscopy (EGD) History of wisdom tooth extraction Family History Aunt Family history of diabetes mellitus Uncle Family history of diabetes mellitus Mother Myocardial infarction Father Myocardial infarction Other No family history of adverse response to anesthesia Denies family history of Ovarian cancer Prostate cancer Breast cancer Colorectal cancer Social History Smoking Status: Never smoker Tobacco Type: Cigarettes Age Started Using Tobacco: 16; Age Quit Using Tobacco: 38; packs per day: 1; Second Hand Exposure: No; Do You Dip or Chew Tobacco: No; Hx Alcohol Use: No Hx Substance Use: No Preferred Language: Welsh Communication Ability: Effective Informatics Spec Required: No Beliefs That Will Affect Care: None marital status: Single Current Living Situation: Alone current occupational status: employed 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 NAD. Cooperative. HEENT: Atraumatic, normocephalic. Pupils equal and reactive to light Pulm: CTAB A&P. -wheezes, -rales, -rhonchi. Symmetrical chest rise. No increased work of breathing. No respiratory distress. Cardiac: Irregularly irregular. Rate fluctuating 901 10 during exam. Soft SM.. Radial pulses intact and symmetrical. Abdominal: Nontender, nondistended, soft. BS present. Extremities: No lower extremity edema Results & Data Results & Data Vital Signs (Past 12 Hours) Vital Signs Temp Pulse Pulse Resp BP BP Pulse Ox 01/24/25 17:05 121 H 16 130/50 L 97 01/24/25 17:00 108 H 01/24/25 16:59 97 01/24/25 16:24 36.5 C 89 14 125/69 97 O2 Del Method 01/24/25 17:05 Room Air 01/24/25 17:00 01/24/25 16:59 Room Air 01/24/25 16:24 Room Air PG Care Time/CCT Total # of Minutes Spent Total Time Spent with Patient: Total time spent is greater than 50% in coordination of care (as documented) at patient's floor/unit and/or counseling patient: Coding Level of Care Code 64296 INT INP/OBS CARE 3/75MIN Diagnoses Afib I48.91 Hepatitis C B19.20 Chronic back pain M54.9; G89.29
[2025-01-24] MEDS ORDERED: METOPROLOL TARTRATE 25 MG TAB PO ONE (18:30)
[2025-01-24] MEDS: ASPIRIN CHEW 324 MG PO STA (18:39)
[2025-01-24] MEDS: METOPROLOL TARTRATE 1 MG/ML VIAL IV STA (18:39)
[2025-01-24] MEDS: MAGNESIUM SULFATE / D5W 1 GM/100 ML BAG IV ONE (18:40)
[2025-01-24] MEDS: Heparin IV Adult Wt-Based Low-Dose w/ INITIAL Bolus Protocol IV STA (18:40)
[2025-01-24] MEDS: HEPARIN 25000 UNIT/500 ML D5W 25,000 UNITS/500 ML BAG IV SCH (18:41)
[2025-01-24] MEDS: HEPARIN SOD (PORCINE) 1000 UNIT/ML IV ONE (18:42)
[2025-01-24] MEDS ORDERED: ACETAMINOPHEN 325 MG TAB PO PRN (19:15)
[2025-01-24] MEDS: PANTOprazole 40 MG TAB PO SCH (21:57)
[2025-01-24] MEDS: traZODone HCL 50 MG TAB PO PRN (22:00)
[2025-01-25] MEDS: LACTATED RINGER'S 500 ML IV ONE (00:51)
[2025-01-25 01:31] LABS: ANTI-Xa, UFH(UnfractionatedHep 0.96 IU/ml (0.3-0.7)
[2025-01-25] MEDS: METOPROLOL TARTRATE 25 MG TAB PO SCH ×2 (01:44→07:49)
[2025-01-25 03:40] LABS: Basophils # (auto) 0.04 K/uL (0.00-0.20); Basophils % (auto) 1.1 %; Eosinophils # (auto) 0.13 K/uL (0.00-0.50); Eosinophils % (auto) 3.5 %; Hematocrit (blood only) 41.5 % (42.0-52.0); Hemoglobin 14.3 g/dl (14.0-18.0); Immature Granulocytes # (auto) 0.01 K/uL (0.01-0.20); Immature Granulocytes % (auto) 0.3 %; Lymphocytes # (auto) 1.56 K/uL (1.20-3.40); Lymphocytes % (auto) 41.6 %; Mean Corpuscular Hemoglobin 29.7 pg (25.0-34.0); Mean Corpuscular Hgb Conc 34.5 g/dL (32.0-36.0); Mean Corpuscular Volume 86.3 fL (80.0-100.0); Mean Platelet Volume 10.1 fL (9.4-12.4); Monocytes % (auto) 10.7 %; Neutrophils # (auto) 1.61 K/uL (1.40-6.50); Neutrophils % (auto) 42.8 %; Platelet Count 109 K/uL (130-400); RDW Coefficient of Variation 14.5 % (11.5-14.5); RDW Standard Deviation 45.7 fL (36.4-46.3); Red Blood Count 4.81 M/uL (4.70-6.10); White Blood Count 3.75 K/ul (4.8-10.8)
[2025-01-25 03:51] LABS: BUN Creatinine Ratio 19.7 (10-20); Calcium 8.9 mg/dl (8.6-10.3); Creatinine Clr Calc Pharmacy 51.6 ml/min; Potassium 5.1 mmol/L (3.5-5.1)
--- NOTE | 2025-01-25 07:35 | Hospitalist Progress Note ---
Date of Service January 25, 2025 Assessment & Plan (1) Afib: Plan: 74-year-old male who presented with new onset a fib/flutter admitted for rate control now stable for d/c home with GI and cardiology follow up. #New Onset A fib/flutter Incidentally found outpatient and recommended ED evaluation. Rate control obtained with IV Lopressor, mildly hypotensive following. Rates < 100 with metoprolol 12.5 mg BID. Continue outpatient. Will start anticoagulation with El iquis 5 mg BID. #Elevated Troponin #Non-specific ST changes EKG with incomplete RBBB, borderline anterolateral ST depressions. Troponin trended to peak. ECHO pending. Initially started on heparin, can transition to DOAC as patient will not be having his liver biopsy today. Would recommend outpatient f/u with cardiology as patient may need a stress test. #Liver Mass #History of treated Hep C Liver mass found on MRI from late December. With history of Hep C and suspicious appearing mass there is concern for hepatocellular carcinoma. Patient was given GI referral to [facility]. No biopsy has been scheduled and it does not seem like the patient has seen GI. Nurse navigator to fax order for CT [facility] to help facilitate liver biopsy. Once arranged patient likely stable for d/c home. #History of treated Hep C Treated by Dr. Yan over a decade prior. Completed antivirals. Most recent testing negative. There was consideration of liver biopsy at that time, but it was not completed due to thrombocytopenia. #Gomes Esophagus Continue PPI #Hypothyroidism TSH normal. Synthroid 100mcg DVT prophylaxis: transition to DOAC CODE STATUS: Full code Diet: Heart healthy Disposition: PCU/Tele, anticipate d/c home, CM to arrange outpatient f/u (2) Hepatitis C: (3) Chronic back pain: (4) Liver mass: Admission and Anticipated Discharge Date Admission Date: January 24, 2025 Subjective Seen at bedside this AM. Patient denies any pain, SOB, CP, abdominal symptoms, fevers or chills. Presented to PCP for tinnitus. Was found to have abnormal BP and his EKG was a fib/flutter. He was sent to the ED for this. He had been feeling generally off, but no illnesses. Patient has a history of Hep C which was treated. He has a known liver mass that needs a biopsy. This has not been arranged at present. Patient hopeful to have this done today. Review of Systems Review of Systems: See HPI Physical Exam Physical Exam: Gen: well appearing patient in NAD HEENT: AT NC MMM Resp: CTAB no wheezing no increased work of breathing CV: irregularly irregular, normal rate, no m/r/g clinically well perfused Abd: soft, non-tender, distended (at baseline) MSK: no obvious deformities Skin: no rashes or bruising Neuro: alert and oriented Psych: appropriate mood and affect Results & Data Results & Data Vital Signs (Past 12 Hours) Vital Signs Temp Pulse Pulse Resp BP BP Pulse Ox 01/25/25 02:34 36.3 C L 82 18 100/69 96 01/24/25 23:37 36.3 C L 71 20 110/78 96 01/24/25 22:05 91 H 01/24/25 22:05 36.3 C L 86 18 126/84 99 01/24/25 21:11 89 01/24/25 20:18 36.7 C 01/24/25 20:05 102 H 20 90/76 L 94 01/24/25 20:05 95 O2 Del Method 01/25/25 02:34 Room Air 01/24/25 23:37 Room Air 01/24/25 22:05 01/24/25 22:05 Room Air 01/24/25 21:11 01/24/25 20:18 01/24/25 20:05 Room Air 01/24/25 20:05 Room Air
[2025-01-25] MEDS: LEVOTHYROXINE SODIUM 100 MCG TABLET PO SCH (07:49)
[2025-01-25] MEDS: SERTRALINE HCL 100 MG TABLET PO SCH (07:49)
[2025-01-25] MEDS ORDERED: LOSARTAN POTASSIUM 50 MG TAB PO SCH (09:00)
[2025-01-25 11:19] VITALS: TEMP 97.5
[2025-01-25 15:19] VITALS: PULSE 69; RESP 19; O2SAT 97
--- NOTE | 2025-01-25 16:02 | XCELERA ---
[id number]
--- NOTE | 2025-01-25 16:29 | Communication Note ---
Date of Service: January 25, 2025 By CMS guidelines, a determination that the admission or continued stay is not medically necessary has been made by a member of the UR committee and a physici an for this hospital stay, therefore a Code 44 will be completed and the Inpatient admission will be changed to outpatient.
[2025-01-25 16:33] VITALS: BP 100/69
--- NOTE | 2025-01-25 16:38 | Discharge Summary ---
Date of Service January 25, 2025 Admission HPI Per Admitting Provider Ruchi is a 74-year-old male with a past medical history of Gomes's esophagus, anxiety/depression/adjustment disorder, lower extremity arterial insufficiency, hypertriglyceridemia, BPH, lower extremity venous stasis, hypothyroidism, hypertension Mr. Hopper reports he was referred in by his PCP. He saw his PCP for tinnitis/ringing in the ears and wanted a hearing evaluation as well While in the PCP office was found to have a fast irriegular heart beat and was told he needed ot go to the ER\\ No ches tpain at any point in the last few weeks or before admission Denies palpitations, but has had 'a little off feeling not quite right' which started 1 week ago. Had one episode of lightheadedness after getting out of bed but did not pass out. No shortness of breath, no dyspnea. Feels more tired and easily fatigued than normal for 'all winter' but also a little worse in the last week or so. "I just dont have energy. Something is just off" No leg swelling No orthopnea No ETOH use Feels fire tired in the morning and has a hard time falling asleep, but no known hx of sleep apnea. Endorses some mild congestion without cough x2-3 weeks but seems to be improving. No other sx, denies other recent illness. No dysuria. Did have Lyme disease 4-5 times in the past. Has been treated with doxycycline x2 complete courses. Last 2 week course of doxycycline this past fall No focal weakness. No numbness/tingling. Tinnitus is chronic, bilateral but seems worse recently. No pulsatile quality. Seems a little worse in the R ear, bu tis bilateral No vision change No hx of GI bleeding or other bleeding. Medical History: Reviewed Medications: Reviewed Surgical History: Reviewed Family history: Reviewed Allergies: Reviewed Social History: Uses nicorette gum. Would like this ordered if possible. No ETOH use. Code Status: Full Code. Surrogate Dm would be Geo Gutierrez, an county attorney and friend at [phone] Admission Exam Per Admitting Provider General: A&Ox3. NAD. Cooperative. HEENT: Atraumatic, normocephalic. Pupils equal and reactive to light Pulm: CTAB A&P. -wheezes, -rales, -rhonchi. Symmetrical chest rise. No increased work of breathing. No respiratory distress. Cardiac: Irregularly irregular. Rate fluctuating 901 10 during exam. Soft SM.. Radial pulses intact and symmetrical. Abdominal: Nontender, nondistended, soft. BS present. Extremities: No lower extremity edema Principal Diagnosis a fib with rvr Discharge Exam Gen: well appearing patient in NAD HEENT: AT NC MMM Resp: CTAB no wheezing no increased work of breathing CV: irregularly irregular, normal rate, no m/r/g clinically well perfused Abd: soft, non-tender, distended (at baseline) MSK: no obvious deformities Skin: no rashes or bruising Neuro: alert and oriented Psych: appropriate mood and affect Discharge Data Allergies Allergy/AdvReac Type Severity Reaction Status Date / Time No Known Allergies Allergy Verified 01/24/25 15:03 Consultations 01/24/25 18:08 ED Decision to Admit Stat Ordered Studies Chest X-Ray 01/24/25 16:28 FINDINGS: Pulmonary Parenchyma: veiling of the left lower lung zone (new finding). left sided cardiac configuration with relatively increased cardiothoracic ratio (though hard to be accurately assessed by the virtue of lower left lung zone veiling). serpentine shadow seen superimposed upon the left lower lobe and cardiac shadow (stable finding and likely vascular) prominent bilateral hilar bronchovascular markings with prominent upper lobe vessels. No evidence of pleural effusion or pleural thickening. Heart and Mediastinum: No mediastinal widening or masses. No hilar or mediastinal lymphadenopathy. Bony Thorax: Bony thorax appears intact without fractures or deformities. Soft Tissues: Soft tissues overlying the chest wall are unremarkable. IMPRESSION: 1. New finding of left lower lung zone veiling, likely inflammatory / early pneumonic than being vascular / edema, for further assessment and clinical data correlation. 2. otherwise stable since last study. ECHO 01/25/2025 1. Normal left ventricular size and systolic function. EF 55-60%. No regional wall motion abnormalities. Severe left ventricular hypertrophy involving the anterior septum/septum, and otherwise moderate concentric left ventricular hypertrophy. 2. Severe left atrial dilation. 3. Sclerotic aortic valve without significant stenosis. 4. Severe mitral annular calcification. 5. Mild mitral regurgitation. 6. Normal estimated right ventricular systolic pressure. 7. Atrial fibrillation. 8. Compared to prior study on 04/27/2024, atrial fibrillation has replaced sinus rhythm. Hospital Course (1) Afib: 74-year-old male who presented with new onset a fib/flutter admitted for rate control now stable for d/c home with GI and cardiology follow up. #New Onset A fib/flutter Incidentally found outpatient and recommended ED evaluation. Rate control obtained with IV Lopressor, mildly hypotensive following. Rates < 100 with metoprolol 12.5 mg BID. Continue outpatient. Will start anticoagulation with Eliquis 5 mg BID. #Elevated Troponin #Non-specific ST changes EKG with incomplete RBBB, borderline anterolateral ST depressions. Troponin trended to peak. ECHO without wall motion abnormalities, normal EF, severe LVH, severe left atrial dilation. Initially started on heparin, can transition to DOAC as patient will not be having his liver biopsy today. Would recommend outpatient f/u with cardiology as patient may need a stress test. #Liver Mass #History of treated Hep C Liver mass found on MRI from late December. With history of Hep C and suspicious appearing mass there is concern for hepatocellular carcinoma. Patient was given GI referral to [facility]. No biopsy has been scheduled and it does not seem like the patient has seen GI. Nurse navigator to fax [facility] to help facilitate liver biopsy. Once arranged patient likely stable for d/c home. #History of treated Hep C Treated by Dr. Yan over a decade prior. Completed antivirals. Most recent testing negative. There was consideration of liver biopsy at that time, but it was not completed due to thrombocytopenia. #Gomes Esophagus Continue PPI #Hypothyroidism TSH normal. Synthroid 100mcg (2) Hepatitis C: (3) Chronic back pain: (4) Liver mass: Total Time Total Time Spent Total Time Spent (In Minutes): See attending attestation Discharge Plan Discharge Items Patient Disposition: Home - Self-Care Reason For Visit: NEW AFIB/AFLUTTER Discharge Diagnosis: a fib Condition on Discharge: Fair Activity: Per Instructions section Non-emergency contact: Primary Care Provider and Contracts Administrator Call non-emergency contact if: your symptoms worsen and your temperature is abov e 101.5 Follow-up/Referrals: Reina Villarreal PA-C [Physician Manager Stylist] - 02/05/25 1:30 pm (Dr. Leon did not have any appointments available. [facility] will be contacting you with an appointment. ) Diet: Heart Healthy Addtl Attending Provider Instructions: You were sent to the hospital by your PCP for an irregular and fast heart rate. Your rate was controlled with a medication called metoprolol. We will continue to this medication on an outpatient basis. We will also add a blood thinner called Eliquis to decrease your stroke risk. We will need you to follow up with a mat repairer, as well. In terms of your liver mass, we were unable to do the biopsy here due to the location of the mass. Our nurse navigator, Tori Ivory, is working on getting that set up on an outpatient basis. If you have not heard anything by 01/31 about scheduling the procedure please reach out to her at [phone]. Medication Changes: Start metoprolol 12.5 mg every 12 hours Eliquis 5 mg every 12 hours No other medication changes were made. You were given a coupon for the Eliquis. You were also given information about [employer]. If you qualify this may reduce your out of pocket prescription costs. Thank you for allowing us to participate in your care. Pending Studies at Discharge: No Stand-Alone Forms: My [facility], Smoking Cessation Medications and DC Order Prescriptions: New metoprolol tartrate 25 mg Tablet 12.5 mg PO BID 30 Days Qty: 60 0RF Eliquis 5 mg Tablet 5 mg PO BID 30 Days Qty: 60 0RF Continued olmesartan 40 mg tablet 40 mg PO DAILY Qty: 90 2RF levothyroxine 75 mcg tablet 75 mcg PO QAM Qty: 30 3RF pantoprazole 40 mg tablet,delayed release (DR/EC) 40 mg PO BID Qty: 180 1RF Rx Instructions: TAKE 1 TABLET BY MOUTH TWICE DAILY sildenafil 50 mg tablet 50 mg PO DAILY PRN (Reason: sexual activity) Qty: 10 3RF sertraline 100 mg tablet 100 mg PO DAILY Qty: 30 2RF Discharge Orders: Discharge Order (Routine); Ordered 01/25/25 Ordered By: Chanel Murphy/Other Patient Handouts: Apixaban Oral Tablet, AFib Dc Admission Data Admit Date/Time: 01/24/25 19:15 Attending Provider: Jeremy Isaac Admit Provider: Jeff Escobedo Primary Care Provider: Xavier Leon Other Providers: Jeff Escobedo Other Interventions: Discharge Summary Assessment (RN) Last Done: 01/25/25 16:32 Supervising Physician Co-Signing Physician Notes I personally examined the patient and verified all barlow points of history and exam, discussed case, and agree with decision making with Dr Melton feeling good. Feels up to going home. Extensive discussions about liver lesion/biopsy as well as A-fib. Vitals noted, in general he is awake and alert pleasant no distress. HEENT normocephalic atraumatic mucous membranes moist. Breathing unlabored no accessory muscle use good effort. Skin shows no rashes no pallor or icterus. Heart rate is controlled new A-fibrate controlled. Home on metoprolol and Eliquis LVH with asymmetric septal hypertrophydid not have any symptoms despite tachycardia which is quite reassuring. Now on metoprolol. Outpatient follow-up elevated troponinprobably largely from LVH, but also likely an element of demand ischemia given tachycardia liver lesiontried to set up biopsy while he was here given how much stress waiting is causing him, unfortunately our radiology department did not feel they could safely biopsy the lesion. Asked nurse navigator to help set up biopsy with tertiary interventional radiology and explained this all to the patient. Discussed that they will want him off his Eliquis for about 3 days prior to biopsy. He expressed a good understanding. Safe/stable for home Resident Activity Tracking Resident Involvement: Resident Care Provided Care Provided: Adult Hospital Medicine
--- NOTE | 2025-01-25 17:57 | Billing Data ---
Date of Service January 25, 2025 Coding Level of Care Code 21363 IN/OBS DISCH 30 MIN/LESS
[2025-01-25] MEDS ORDERED: APIXABAN 5 MG TABLET PO SCH (21:00)
--- NOTE | 2025-01-26 03:48 | Electrocardiogram Report ---
Test Reason : Blood Pressure : */* mmHG Vent. Rate : 123 BPM Atrial Rate : 357 BPM P-R Int : * ms QRS Dur : 120 ms QT Int : 320 ms P-R-T Axes : 73 -29 195 degrees QTcB Int : 458 ms Atrial fibrillation with rapid ventricular response Right bundle branch block Abnormal ECG When compared with ECG of 27-Jul-2017 17:50, Atrial fibrillation has replaced Sinus rhythm Vent. rate has increased by 60 bpm Right bundle branch block is now Present Confirmed by Lucas Solis ([id number]) on 01/26/2025 3:48:27 AM Referred By: Cat Stanley Confirmed By: Lucas Solis
--- NOTE | 2025-01-26 03:49 | Electrocardiogram Report ---
Test Reason : Blood Pressure : */* mmHG Vent. Rate : 82 BPM Atrial Rate : 328 BPM P-R Int : * ms QRS Dur : 134 ms QT Int : 374 ms P-R-T Axes : 97 35 186 degrees QTcB Int : 436 ms Poor data quality, interpretation may be adversely affected Atrial fibrillation Right bundle branch block Nonspecific ST and T wave abnormality Abnormal ECG When compared with ECG of 24-Jan-2025 16:51, Vent. rate has decreased by 41 bpm Confirmed by Lucas Solis ([id number]) on 01/26/2025 3:49:10 AM Referred By: Cat Stanley Confirmed By: Lucas Solis
== END 2025-01-25 17:48 | disposition home or self-care (01) | DRG 310 ==
LOC: ED 16:13 → INTOOBSV 19:15 → SUATTDRO 19:15 → 2E 19:15